=== PATIENT | female | born 1985 | race Caucasian/White ===

== ENCOUNTER 2017-02-14 14:23 | Emergency (ER) | payer SELFPAY ==
[~2017-02-14] VITALS: Ht 160 cm; Wt 59.0 kg
[~2017-02-14 14:23] MED LIST: ANXIETY MED; AZTH250C PO; CPR500T PO; DULO60CA6 PO; HYDR1TAB PO
--- NOTE | 2017-02-14 15:01 | ED Integumentary General ---
General Chief Complaint: Allergic Reaction Stated Complaint: ALLERGIC REACTION/EYES SWOLLEN Source: patient Exam Limitations: no limitations History of Present Illness Time seen by provider: 14:53 Initial Comments The patient is a 31-year-old white female who presents with complaints of swelling about the eyes. She reports that [place] She believes she apparently rubbed her eyes. Yesterday they began to swell. They also itch. Today this is more the case. She has also developed several other itchy areas, the most prominent of which is midsternal. She also states that there is redness and itching in the groin. She is suspicious that this is poison kamari. Location: face, torso, genitalia Allergies and Home Medications Allergies Coded Allergies: Penicillins (Verified Allergy, Unknown, 03/23/07) Home Medications Azithromycin 250 Mg Tablet, 1 TAB PO DAILY for 5 Days 2 tabs by mouth on day 1, then 1 tab by mouth on days 2 through 5. Prescribed by: MAXX BABCOCK on 01/06/14 1417 Constitutional: see HPI EENTM: no symptoms reported Respiratory: no symptoms reported Cardiovascular: no symptoms reported Gastrointestinal: no symptoms reported Genitourinary: no symptoms reported Musculoskeletal: no symptoms reported Skin: see HPI Psychiatric/Neurological: No Symptoms Reported Endocrine: No Symptoms Reported Past Mkaypey-Zquelo-Kgvpna Hx Patient Social History Recent Foreign Travel: No Contact w/Someone Who Travel: No Surgeries HX Surgeries: Yes (HERNIA REPAIR) Respiratory Hx Respiratory Disorders: No Cardiovascular Hx Cardiac Disorders: No Neurological Hx Neurological Disorders: No Genitourinary Hx Genitourinary Disorders: No Gastrointestinal Hx Gastrointestinal Disorders: No Musculoskeletal Hx Musculoskeletal Disorders: No Endocrine Hx Endocrine Disorders: No HEENT HX ENT Disorders: No Cancer Hx Cancer: No Psychosocial Hx Psychiatric Problems: No Integumentary HX Skin/Integumentary Disorder: No Blood Transfusions Hx Blood Disorders: No Physical Exam Vital Signs Capillary Refill : General Appearance: mild distress, moderate distress Neck: non-tender, full range of motion, supple, normal inspection Cardiovascular: normal peripheral pulses, regular rate, rhythm, no edema, no gallop, no JVD, no murmur Respiratory: chest non-tender Gastrointestinal: normal bowel sounds Comments The patient exhibits considerable swelling in the area the orbital area bilaterally. The left eye is somewhat more affected. The sclera are uninvolved. There is evidence of rash and excoriation in the mid sternal area. Scattered areas are noted on the hands and arms as well. Departure Impression Impression: Primary Impression: Rhus dermatitis Disposition: 01 HOME, SELF-CARE Condition: Stable/Unchanged Departure-Patient Inst. Decision time for Depature: 14:58 Referrals: NO,LOCAL PHYSICIAN (PCP) Primary Care Physician Add. Discharge Instructions: All discharge instructions reviewed with patient and/or family. Voiced understanding. 1.use cool compresses to reduce eye swelling. 2.take prednisone as directed 3.in future, practice avoidance which is to say wash hands with soap and water before touching in other parts. After outdoor experiences, removing clothing and throwing it in that her to close and taking a warm soapy shower will reduce the incidence of poison kamari and also of chigger bites and tics. Scripts Prednisone (Prednisone) 20 Mg Tab 40 MG PO Q a.m., #6 TAB Prov: SAM SINGH MD 02/14/17 SAM SINGH MD Feb 14, 2017 15:01
[2017-02-14] MEDS ORDERED: PRD20T PO (15:02)
[2017-02-14 15:15] VITALS: BP 133/74
[2017-02-14] MEDS ORDERED: methylPREDNISolone 125 MG (Solu-MEDROL) VIAL IM ONE (15:15)
--- OUTSIDE RECORDS SUMMARY | 2017-02-18 07:42 | XMS REPORT | Continuity of Care Document ---
Author Author [facility] Organization [facility] Address Unknown Phone Unavailable Allergies Active Description Code Type Severity Reaction Onset Reported/Identified Relationship to Patient Clinical Status Yes Penicillins [id number] Drug Allergy Unknown N/A 03/23/2007 Yes penicillin G sodium Drug Allergy 11/20/2010 Yes penicillin G sodium Drug Allergy N/A N/A 11/20/2010 Medications Problems Date Dx Coded Attending Type Code Diagnosis Diagnosed By 06/09/2008 V25.49 SURVEILLANCE OF OTHER CONTRACEPTIVE METHOD 06/09/2008 V25.49 SURVEILLANCE OF OTHER CONTRACEPTIVE METHOD 06/09/2008 V25.49 SURVEILLANCE OF OTHER CONTRACEPTIVE METHOD 06/09/2008 ARCENIO LOCKHART DO V25.49 SURVEILLANCE OF OTHER CONTRACEPTIVE METHOD 06/09/2008 ARCENIO LOCKHART DO V25.49 SURVEILLANCE OF OTHER CONTRACEPTIVE METHOD 06/09/2008 MARIAELENA WU APRN V25.49 SURVEILLANCE OF OTHER CONTRACEPTIVE METHOD 10/30/2010 V72.31 STROKE BELT SANDER OPERATOR EXAM, ROUTINE 10/30/2010 V72.42 TEST POSITIVE RESULT 10/30/2010 V74.5 STD SCREEN 10/30/2010 V72.31 STROKE BELT SANDER OPERATOR EXAM, ROUTINE 10/30/2010 V72.42 TEST POSITIVE RESULT 10/30/2010 V74.5 STD SCREEN 10/30/2010 V72.31 STROKE BELT SANDER OPERATOR EXAM, ROUTINE 10/30/2010 V72.42 TEST POSITIVE RESULT 10/30/2010 V74.5 STD SCREEN 10/30/2010 ARCENIO LOCKHART DO V72.31 STROKE BELT SANDER OPERATOR EXAM, ROUTINE 10/30/2010 ARCENIO LOCKHART DO V72.42 TEST POSITIVE RESULT 10/30/2010 ARCENIO LOCKHART DO V74.5 STD SCREEN 10/30/2010 ARCENIO LOCKHART DO V72.31 STROKE BELT SANDER OPERATOR EXAM, ROUTINE 10/30/2010 ARCENIO LOCKHART DO V72.42 TEST POSITIVE RESULT 10/30/2010 ARCENIO LOCKHART DO V74.5 STD SCREEN 10/30/2010 MARIAELENA WU APRN V72.31 STROKE BELT SANDER OPERATOR EXAM, ROUTINE 10/30/2010 MARIAELENA WU APRN V72.42 TEST POSITIVE RESULT 10/30/2010 MARIAELENA WU APRN V74.5 STD SCREEN 11/20/2010 654.20 PREVIOUS 11/20/2010 782.1 RASH 11/20/2010 V22.1 , NORMAL OTHER 11/20/2010 654.20 PREVIOUS 11/20/2010 782.1 RASH 11/20/2010 V22.1 , NORMAL OTHER 11/20/2010 654.20 PREVIOUS 11/20/2010 782.1 RASH 11/20/2010 V22.1 , NORMAL OTHER 11/20/2010 LYDIA LOCKHART DOA K 654.20 PREVIOUS 11/20/2010 RICHY HUNT ARCENIO K 782.1 RASH 11/20/2010 LOCKHART DO ARCENIO K V22.1 , NORMAL OTHER 11/20/2010 RICHY HUNT ARCENIO K 654.20 PREVIOUS 11/20/2010 RICHY HUNT ARCENIO K 782.1 RASH 11/20/2010 LOCKHART DO ARCENIO K V22.1 , NORMAL OTHER 11/20/2010 MARIAELENA WU APRN R 654.20 PREVIOUS 11/20/2010 MARIAELENA WU APRN R 782.1 RASH 11/20/2010 MARIAELENA WU APRN R V22.1 , NORMAL OTHER 12/18/2010 640.00 THREATENED 12/18/2010 640.00 THREATENED 12/18/2010 640.00 THREATENED 12/18/2010 LYDIA LOCKHART DOA K 640.00 THREATENED 12/18/2010 RICHY HUNT ARCENIO K 640.00 THREATENED 12/18/2010 MARIAELENA WU APRN R 640.00 THREATENED 12/22/2010 Ot 634.91 SPON ABORT UNCOMPL-INC 06/20/2011 727.42 GANGLION OF TENDON SHEATH 06/20/2011 V25.9 CONTRACEPTION MANAGEMENT 06/20/2011 727.42 GANGLION OF TENDON SHEATH 06/20/2011 V25.9 CONTRACEPTION MANAGEMENT 06/20/2011 727.42 GANGLION OF TENDON SHEATH 06/20/2011 V25.9 CONTRACEPTION MANAGEMENT 06/20/2011 ARCENIO LOCKHART DO 727.42 GANGLION OF TENDON SHEATH 06/20/2011 ARCENIO LOCKHART DO K V25.9 CONTRACEPTION MANAGEMENT 06/20/2011 ARCENIO LOCKHART DO K 727.42 GANGLION OF TENDON SHEATH 06/20/2011 LYDIA LOCKHART DOA K V25.9 CONTRACEPTION MANAGEMENT 06/20/2011 MARIAELENA WU APRN 727.42 GANGLION OF TENDON SHEATH 06/20/2011 MARIAELENA WU APRN R V25.9 CONTRACEPTION MANAGEMENT 07/18/2011 354.0 CARPAL TUNNEL SYNDROME 07/18/2011 354.0 CARPAL TUNNEL SYNDROME 07/18/2011 354.0 CARPAL TUNNEL SYNDROME 07/18/2011 ARCENIO LOCKHART DO K 354.0 CARPAL TUNNEL SYNDROME 07/18/2011 ARCENIO LOCKHART DO K 354.0 CARPAL TUNNEL SYNDROME 07/18/2011 MARIAELENA WU APRN 354.0 CARPAL TUNNEL SYNDROME 01/28/2012 719.41 SHOULDER JOINT PAIN 01/28/2012 V76.2 CERVICAL CANCER SCREENING (PAP SMEAR) 01/28/2012 719.41 SHOULDER JOINT PAIN 01/28/2012 V76.2 CERVICAL CANCER SCREENING (PAP SMEAR) 01/28/2012 719.41 SHOULDER JOINT PAIN 01/28/2012 V76.2 CERVICAL CANCER SCREENING (PAP SMEAR) 01/28/2012 ARCENIO LOCKHART DO 719.41 SHOULDER JOINT PAIN 01/28/2012 ARCENIO LOCKHART DO K V76.2 CERVICAL CANCER SCREENING (PAP SMEAR) 01/28/2012 ARCENIO LOCKHART DO K 719.41 SHOULDER JOINT PAIN 01/28/2012 ARCENIO LOCKHART DO K V76.2 CERVICAL CANCER SCREENING (PAP SMEAR) 01/28/2012 MARIAELENA WU APRN R 719.41 SHOULDER JOINT PAIN 01/28/2012 MARIAELENA WU APRN R V76.2 CERVICAL CANCER SCREENING (PAP SMEAR) 05/01/2012 V72.41 TEST NEGATIVE RESULT 05/01/2012 V72.41 TEST NEGATIVE RESULT 05/01/2012 V72.41 TEST NEGATIVE RESULT 05/01/2012 ARCENIO LOCKHART DO K V72.41 TEST NEGATIVE RESULT 05/01/2012 ARCENIO LOCKHART DO K V72.41 TEST NEGATIVE RESULT 05/01/2012 MARIAELENA WU APRN V72.41 TEST NEGATIVE RESULT 03/10/2013 305.1 TOBACCO ABUSE 03/10/2013 V76.10 BREAST CANCER SCREENING 03/10/2013 ARCENIO LOCKHART DO K 305.1 TOBACCO ABUSE 03/10/2013 ARCENIO LOCKHART DO K V76.10 BREAST CANCER SCREENING 03/10/2013 ARCENIO LOCKHART DO K 305.1 TOBACCO ABUSE 03/10/2013 ARCENIO LOCKHART DO K V76.10 BREAST CANCER SCREENING 03/10/2013 MARIAELENA WU APRN R 305.1 TOBACCO ABUSE 03/10/2013 MARIAELENA WU APRN R V76.10 BREAST CANCER SCREENING 01/06/2014 MAXX BABCOCK MACHINE PRESSER Ot 305.1 TOBACCO USE DISORDER 01/06/2014 MAXX BABCOCK MACHINE PRESSER Ot 465.9 ACUTE URI NOS 01/06/2014 MAXX BABCOCK APRN Ot 786.2 COUGH 09/06/2014 MARIAELENA WU APRN R 388.70 OTALGIA UNSPECIFIED 08/11/2016 Ot 647.94 08/11/2016 Ot 998.59 10/09/2016 Ot 647.94 10/09/2016 Ot 998.59 01/09/2017 Ot 647.94 01/09/2017 Ot 998.59 Procedures Code [place] [address] URINE TEST (IN-HOUSE) 08/26/2012 19159 THERAPUTIC INJ SQ/IM 08/26/2012 J1055 DEPO-PROVERA INJ 150 MG 08/26/2012 06834 THERAPUTIC INJ SQ/IM 11/30/2012 J1050 DEPO PROVERA 08254 URINE TEST (IN-HOUSE) 11/30/2012 67594 URINE TEST (IN-HOUSE) 06/01/2013 01809 THERAPUTIC INJ SQ/IM 06/01/2013 J1050 DEPO PROVERA J1050 DEPO PROVERA 03/2014 07892 TEST, URINE (IN-HOUSE) 11/16/2013 13689 THERAPUTIC INJ SQ/IM 11/16/2013 Results Encounters ACCT No. Visit Date/Time Discharge Status Pt. Type Provider Facility Loc./Unit Complaint [id number] 02/14/2017 14:25:00 2016 15:17:00 DIS Emergency FRANCISCO ALVA, SAM Delacruz [facility] ER ALLERGIC REACTION/EYES SWOLLEN [id number] 01/06/2014 13:15:00 2013 14:26:00 DIS Emergency MAXX BABCOCK APRN [facility] ER COUGH CHEST/BACK PAIN SOA [id number] 12/21/2010 21:45:00 Document Registration [id number] 03/28/2007 00:30:00 Document Registration
== END 2017-02-14 15:17 | disposition home or self-care (01) ==
LOC: EDUNIT# 14:23 → ER 14:25
DX: L23.7 Allergic contact dermatitis due to plants, except food (principal)
CPT/HCPCS: 96374

== ENCOUNTER 2018-02-13 14:45 | Emergency (ER) | payer SELFPAY ==
[~2018-02-13] VITALS: Ht 162.6 cm; Wt 59.0 kg
[~2018-02-13 14:45] MED LIST changes: +PRD20T PO
[2018-02-13] MEDS ORDERED: LIDOCAINE/EPI 1%-1:100,000 (XYLOCAINE) 20ML INJ ONE (15:00)
[2018-02-13] MEDS ORDERED: CLINDAMYCIN 600 MG/4ML (CLEOCIN) VIAL IM ONE (15:00)
--- NOTE | 2018-02-13 15:03 | ED EENT ---
History of Present Illness General Chief Complaint: Dental Problems/Pain Stated Complaint: DENTAL INFECTION Source: patient Exam Limitations: no limitations History of Present Illness Date Seen by Provider: Feb 13, 2018 Time Seen by Provider: 14:57 Initial Comments to ER with left lower dental pain and swelling for 2 days. States sheI cannot afford an antibiotic right now. Timing/Duration: abrupt Severity: moderate Location: dental Associated Symptoms: facial pain/swelling Allergies and Home Medications Allergies Coded Allergies: Penicillins (Verified Allergy, Unknown, 03/23/07) Home Medications Cephalexin 500 Mg Capsule, 500 MG PO TID Prescribed by: MAXX BABCOCK on 02/13/18 1514 Hydrocodone/Acetaminophen 1 Each Tablet, 1 EACH PO Q4H PRN for PAIN-MODERATE do not fill unless Keflex and Flagyl are also filled. Prescribed by: MAXX BABCOCK on 02/13/18 1514 Metronidazole 500 Mg Tablet, 500 MG PO TID Prescribed by: MAXX BABCOCK on 02/13/18 1514 Prednisone 20 Mg Tab, 40 MG PO Q a.m. Prescribed by: SAM SINGH on 02/14/17 1502 Patient Home Medication List Home Medication List Reviewed: Yes Review of Systems Constitutional: see HPI Eyes: No Symptoms Reported Ears: No Symptoms Reported Nose: no symptoms reported Mouth: see HPI, pain Throat: no symptoms reported Respiratory: no symptoms reported Cardiovascular: no symptoms reported Musculoskeletal: no symptoms reported Past Djrfpsj-Klogqt-Qylpgs Hx Patient Social History Type Used: Cigarettes Recent Foreign Travel: No Contact w/Someone Who Travel: No Past Medical History Surgeries: Yes (HERNIA REPAIR) Respiratory: No Cardiac: No Neurological: No Gastrointestinal: No Musculoskeletal: No Endocrine: No Cancer: No Psychosocial: No Integumentary: No Blood Disorders: No Physical Exam Vital Signs Vital Signs - First Documented 02/13/18 14:52 Temp 98.4 Pulse 122 Resp 15 B/P (MAP) 124/84 (97) Pulse Ox 99 O2 Delivery Room Air O2 Flow Rate 0 Height, Weight, BMI Height: 5', 3" Weight: 130lbs oz, 58.054188hu Method:Stated ,31.88BMI General Appearance: WD/WN, no apparent distress Eyes: bilateral eye normal inspection, bilateral eye PERRL Ears: bilateral ear auricle normal, bilateral ear canal normal Mouth/Throat: normal mouth inspection, pharynx normal (mucosa left mandible next to tooth #22) Procedures/Interventions I&D : Blade Size: 11 Progress Inferior alveolar nerve block done with anesthesia of the area of abscess. Over the area of maximum fluctuance, 11 blade scalpel was used to open an area about 0.5-1 cm in length. A small amount of purulent material was expressed. Culture was collected and sent to lab.hemostasis achieved with direct pressure via 2 x 2 gauze pads Progress/Results/Core Measures Results/Orders My Orders Orders - MAXX BABCOCK APRN Clindamycin Injection (Cleocin Injection (02/13/18 15:00) Wound Culture (02/13/18 14:55) Lidocaine/Epi 1% 1:100,000 (Xylocaine /E (02/13/18 15:00) Clindamycin Injection (Cleocin Injection (02/13/18 15:15) Lidocaine/Epi 2% 1:100,000 (Xylocaine/Ep (02/13/18 15:15) Clindamycin Injection (Cleocin Injection (02/13/18 15:16) Medications Given in ED Current Medications Medications Dose Ordered Sig/Alvarez Route Start Time Stop Time Status Last Admin Dose Admin Clindamycin Phosphate 300 mg STK-MED ONCE .ROUTE 02/13/18 15:16 02/13/18 15:18 DC 02/13/18 15:24 600 MG Vital Signs/I&O 02/13/18 14:52 Temp 98.4 Pulse 122 Resp 15 B/P (MAP) 124/84 (97) Pulse Ox 99 O2 Delivery Room Air O2 Flow Rate 0 Departure Communication (Admissions) she is allergic to penicillins.she cannot afford clindamycin. I'll use Keflex and Flagyl. Impression Primary Impression: Dental abscess Disposition: HOME, SELF-CARE Condition: Stable Departure-Patient Inst. Decision time for Depature: 15:11 Referrals: NO,LOCAL PHYSICIAN (PCP/Family) Primary Care Physician Patient Instructions: Tooth Abscess (DC) Add. Discharge Instructions: 1. Return to ER for any worsening symptoms 2. Medication as directed 3.antibiotics are far more helpful in resolving this than the pain medication so if you only fill one type of medication, choose the antibiotic. All discharge instructions reviewed with patient and/or family. Voiced understanding. Scripts Hydrocodone/Acetaminophen ([place] 5-325 Tablet) 1 Each Tablet 1 EACH PO Q4H PRN for PAIN-MODERATE, #14 TAB do not fill unless Keflex and Flagyl are also filled. Prov: MAXX BABCOCK APRN 02/13/18 Metronidazole (Flagyl) 500 Mg Tablet 500 MG PO TID, #15 TAB Prov: MAXX BABCOCK APRN 02/13/18 Cephalexin (Keflex) 500 Mg Capsule 500 MG PO TID, #21 CAP Prov: MAXX BABCOCK APRN 02/13/18 MAXX BABCOCK APRN Feb 13, 2018 15:03
[2018-02-13] MEDS ORDERED: METR500T PO (15:14)
[2018-02-13] MEDS ORDERED: HYDR-757 PO (15:14)
[2018-02-13] MEDS ORDERED: CEPH-507 PO (15:14)
[2018-02-13] MEDS ORDERED: LIDOCAINE/EPI 2% 1:100,00 (XYLOCAINE) 20 ML VIAL INJ ONE (15:15)
[2018-02-13] MEDS ORDERED: CLINDAMYCIN 300 MG/2ML (CLEOCIN) VIAL IM SCH (15:15)
[2018-02-13] MEDS ORDERED: CLINDAMYCIN 300 MG/2ML (CLEOCIN) VIAL ONE (15:16)
[2018-02-13 15:56] VITALS: BP 124/84
== END 2018-02-13 15:56 | disposition home or self-care (01) ==
LOC: EDUNIT# 14:45 → ER 14:48
DX: K04.7 Periapical abscess without sinus (principal); Z88.0 Allergy status to penicillin; Z79.52 Long term (current) use of systemic steroids; Z87.19 Personal history of other diseases of the digestive system
CPT/HCPCS: 41800; 87070; 87077; 87205; 96372

== ENCOUNTER 2018-02-26 09:09 | Emergency (ER) | payer SELFPAY ==
[~2018-02-26] VITALS: Ht 160 cm; Wt 59.0 kg
[~2018-02-26 09:09] MED LIST changes: +CEPH-507 PO; +HYDR-757 PO; +METR500T PO
--- OUTSIDE RECORDS SUMMARY | 2018-02-26 09:16 | XMS REPORT | Continuity of Care Document ---
Author Author [facility] Address Unknown Phone Unavailable Allergies Active Description Code Type Severity Reaction Onset Reported/Identified Relationship to Patient Clinical Status Yes Penicillins [id number] Drug Allergy Unknown N/A 03/23/2007 Yes penicillin G sodium Drug Allergy 11/20/2010 Yes penicillin G sodium Drug Allergy N/A N/A 11/20/2010 Medications There is no data. Problems Date Dx Coded Attending Type Code Diagnosis Diagnosed By 06/09/2008 V25.49 SURVEILLANCE OF OTHER CONTRACEPTIVE METHOD 06/09/2008 V25.49 SURVEILLANCE OF OTHER CONTRACEPTIVE METHOD 06/09/2008 V25.49 SURVEILLANCE OF OTHER CONTRACEPTIVE METHOD 06/09/2008 ARCENIO LOCKHART DO V25.49 SURVEILLANCE OF OTHER CONTRACEPTIVE METHOD 06/09/2008 ARCENIO LOCKHART DO V25.49 SURVEILLANCE OF OTHER CONTRACEPTIVE METHOD 06/09/2008 MARIAELENA WU APRN V25.49 SURVEILLANCE OF OTHER CONTRACEPTIVE METHOD 10/30/2010 V72.31 MACHINE SPRAYER EXAM, ROUTINE 10/30/2010 V72.42 TEST POSITIVE RESULT 10/30/2010 V74.5 STD SCREEN 10/30/2010 V72.31 MACHINE SPRAYER EXAM, ROUTINE 10/30/2010 V72.42 TEST POSITIVE RESULT 10/30/2010 V74.5 STD SCREEN 10/30/2010 V72.31 MACHINE SPRAYER EXAM, ROUTINE 10/30/2010 V72.42 TEST POSITIVE RESULT 10/30/2010 V74.5 STD SCREEN 10/30/2010 LOCKHART ARCENIO HUNT V72.31 MACHINE SPRAYER EXAM, ROUTINE 10/30/2010 ARCENIO LOCKHART DO V72.42 TEST POSITIVE RESULT 10/30/2010 ARCENIO LOCKHART DO V74.5 STD SCREEN 10/30/2010 ARCENIO LOCKHART DO V72.31 MACHINE SPRAYER EXAM, ROUTINE 10/30/2010 ARCENIO LOCKHART DO V72.42 TEST POSITIVE RESULT 10/30/2010 ARCENIO LOCKHART DO V74.5 STD SCREEN 10/30/2010 MARIAELENA WU APRN V72.31 MACHINE SPRAYER EXAM, ROUTINE 10/30/2010 MARIAELENA WU APRN V72.42 TEST POSITIVE RESULT 10/30/2010 MARIAELENA WU APRN V74.5 STD SCREEN 11/20/2010 654.20 PREVIOUS C- SECTION 11/20/2010 782.1 RASH 11/20/2010 V22.1 , NORMAL OTHER 11/20/2010 654.20 PREVIOUS C- SECTION 11/20/2010 782.1 RASH 11/20/2010 V22.1 , NORMAL OTHER 11/20/2010 654.20 PREVIOUS C- SECTION 11/20/2010 782.1 RASH 11/20/2010 V22.1 , NORMAL OTHER 11/20/2010 RICHY DO ARCENIO K 654.20 PREVIOUS 11/20/2010 LOCKHART DO, ARCENIO K 782.1 RASH 11/20/2010 LOCKHART DO, ARCENIO K V22.1 , NORMAL OTHER 11/20/2010 RICHY HUNT ARCENIO K 654.20 PREVIOUS 11/20/2010 LOCKHART DO, ARCENIO K 782.1 RASH 11/20/2010 LOCKHART DO, ARCENIO K V22.1 , NORMAL OTHER 11/20/2010 MARIAELENA WU APRN R 654.20 PREVIOUS 11/20/2010 MARIAELENA WU APRN R 782.1 RASH 11/20/2010 MARIAELENA WU APRN V22.1 , NORMAL OTHER 12/18/2010 640.00 THREATENED 12/18/2010 640.00 THREATENED 12/18/2010 640.00 THREATENED 12/18/2010 RICHY DO ARCENIO K 640.00 THREATENED 12/18/2010 LOCKHART DO ARCENIO K 640.00 THREATENED 12/18/2010 MARIAELENA WU [...] K 727.42 GANGLION OF TENDON SHEATH 06/20/2011 ARCENIO LOCKHART DO K V25.9 CONTRACEPTION MANAGEMENT 06/20/2011 MARIAELENA WU APRN 727.42 GANGLION OF TENDON SHEATH 06/20/2011 MARIAELENA WU APRN V25.9 CONTRACEPTION MANAGEMENT 07/18/2011 354.0 CARPAL TUNNEL [...] SHOULDER JOINT PAIN 01/28/2012 ARCENIO LOCKHART DO V76.2 CERVICAL CANCER SCREENING (PAP SMEAR) 01/28/2012 ARCENIO LOCKHART DO 719.41 SHOULDER JOINT PAIN 01/28/2012 ARCENIO LOCKHART DO V76.2 CERVICAL CANCER SCREENING (PAP SMEAR) 01/28/2012 MARIAELENA WU APRN 719.41 SHOULDER JOINT PAIN 01/28/2012 MARIAELENA WU APRN R V76.2 CERVICAL CANCER SCREENING (PAP SMEAR) 05/01/2012 V72.41 TEST NEGATIVE RESULT 05/01/2012 V72.41 TEST NEGATIVE RESULT 05/01/2012 V72.41 TEST NEGATIVE RESULT 05/01/2012 ARCENIO LOCKHART DO V72.41 TEST NEGATIVE RESULT 05/01/2012 ARCENIO LOCKHART DO V72.41 TEST NEGATIVE RESULT 05/01/2012 MARIAELENA WU APRN V72.41 TEST NEGATIVE RESULT 03/10/2013 305.1 TOBACCO ABUSE 03/10/2013 V76.10 BREAST CANCER SCREENING 03/10/2013 ARCENIO LOCKHART DO K 305.1 TOBACCO ABUSE 03/10/2013 ARCENIO LOCKHART DO K V76.10 BREAST CANCER SCREENING 03/10/2013 ARCENIO LOCKHART DO K 305.1 TOBACCO ABUSE 03/10/2013 LYDIA LOCKHART DOA K V76.10 BREAST CANCER SCREENING 03/10/2013 JAZMIN PENG MARIAELENA R 305.1 TOBACCO ABUSE 03/10/2013 JAZMIN PENG MARIAELENA R V76.10 BREAST CANCER SCREENING 01/06/2014 MAXX BABCOCK APRN Ot 305.1 TOBACCO USE DISORDER 01/06/2014 MAXX BABCOCK APRN Ot 465.9 ACUTE URI NOS 01/06/2014 MAXX BABCOCK APRN Ot 786.2 COUGH 09/06/2014 MAX WU APRNINA R 388.70 OTALGIA UNSPECIFIED 08/11/2016 Ot 647.94 08/11/2016 Ot 998.59 10/09/2016 Ot 647.94 10/09/2016 Ot 998.59 01/09/2017 Ot 647.94 01/09/2017 Ot 998.59 02/14/2017 SAM SINGH MD Ot H57.8 OTHER SPECIFIED DISORDERS OF EYE AND ADN 02/14/2017 SAM SINGH MD Ot L23.7 ALLERGIC CONTACT DERMATITIS DUE TO PLANT 02/17/2017 SAM SINGH MD Ot H57.8 OTHER SPECIFIED DISORDERS OF EYE AND ADN 02/17/2017 SAM SINGH MD Ot L23.7 ALLERGIC CONTACT DERMATITIS DUE TO PLANT 02/16/2018 MAXX BABCOCK APRN Ot K04.7 PERIAPICAL ABSCESS WITHOUT SINUS 02/16/2018 MAXX BABCOCK APRN Ot K08.89 OTHER SPECIFIED DISORDERS OF TEETH AND S 02/16/2018 MAXX BABCOCK APRN Ot Z79.52 BLOW MOLD MACHINE OPERATOR (CURRENT) USE OF SYSTEMIC STER 02/16/2018 MAXX BABCOCK APRN Ot Z87.19 PERSONAL HISTORY OF OTHER DISEASES OF TH 02/16/2018 MAXX BABCOCK APRN Ot Z88.0 ALLERGY STATUS TO PENICILLIN Procedures Code Description [place] [address] URINE TEST (IN- HOUSE) 08/26/2012 30480 THERAPUTIC INJ SQ/IM 08/26/2012 J1055 DEPO-PROVERA INJ 150 MG 08/26/2012 55252 THERAPUTIC INJ SQ/IM 11/30/2012 J1050 DEPO PROVERA 11/30/2012 84429 URINE TEST (IN- HOUSE) 11/30/2012 10102 URINE TEST (IN- HOUSE) 06/01/2013 39114 THERAPUTIC INJ SQ/IM 06/01/2013 J1050 DEPO PROVERA 06/01/2013 J1050 DEPO PROVERA 11/16/2013 58046 TEST, URINE (IN- HOUSE) 11/16/2013 97353 THERAPUTIC INJ SQ/IM 11/16/2013 Results Test Result Range Gram stain microscopy - 02/13/18 15:34 GRAM STAIN RESULT FEW WBC'S, NO BACTERIA OBSERVED NRG Bacteria identification in wound by culture - 02/13/18 15:34 Bacteria identification in wound by culture [id number] NRG FREE TEXT EXTERNAL BETA LACTAMASE NEGATIVE NRG QUANTITY OF GROWTH Scant Growth NRG Encounters ACCT No. Visit Date/Time Discharge Status Pt. Type Provider Facility Loc./Unit Complaint [id number] 09/06/2014 17:58:00 09/06/2014 23:59:59 CLS Outpatient MARIAELENA WU APRN [id number] 11/16/2013 15:12:00 11/16/2013 23:59:59 CLS Outpatient ARCENIO LOCKHART DO [id number] 06/01/2013 13:34:00 06/01/2013 23:59:59 CLS Outpatient ARCENIO LOCKHART DO [id number] 08/26/2012 14:01:00 08/26/2012 23:59:59 CLS Outpatient [id number] 03/10/2013 09:21:00 Document Registration [id number] 11/30/2012 18:13:00 Document Registration [id number] 02/13/2018 14:48:00 02/13/2018 15:56:00 DIS Outpatient MAXX BABCOCK APRN [facility] ER DENTAL INFECTION [id number] 02/14/2017 14:25:00 02/14/2017 15:17:00 DIS Emergency SAM SINGH MD [facility] ER ALLERGIC REACTION/EYES SWOLLEN [id number] 01/06/2014 13:15:00 01/06/2014 14:26:00 DIS Emergency MXAX BABCOCK APRN [facility] ER COUGH CHEST/BACK PAIN SOA [id number] 12/21/2010 21:45:00 Document Registration [id number] 03/28/2007 00:30:00 Document Registration
--- NOTE | 2018-02-26 10:42 | ED Integumentary General ---
General Chief Complaint: Skin/Wound Problems Stated Complaint: POISON NOVA Nursing Triage Note: PATIENT STATES THAT SHE BELIEVES SHE HAS POISON NOVA. SHE IS BROKEN OUT IN A RED RASH ALL OVER HER BODY THAT ITCHES. HER EYES ARE SWOLLEN. Source: patient Exam Limitations: no limitations History of Present Illness Date Seen by Provider: Feb 26, 2018 Time Seen by Provider: 10:35 Initial Comments This 32-year-old woman presents to emergency room with intensely pruritic erythematous and swelling rash on her face and arms. 2 days ago [place] and believe she may been exposed to poison nova. She has tried a topical poison nova medication which was not particularly helpful. She denies any airway compromise. She is requesting an injection of steroids to treat the rash. Allergies and Home Medications Allergies Coded Allergies: Penicillins (Verified Allergy, Unknown, 03/23/07) Home Medications Cephalexin 500 Mg Capsule, 500 MG PO TID Prescribed by: MAXX BABCOCK on 02/13/18 1514 Hydrocodone/Acetaminophen 1 Each Tablet, 1 EACH PO Q4H PRN for PAIN-MODERATE do not fill unless Keflex and Flagyl are also filled. Prescribed by: MAXX BABCOCK on 02/13/18 1514 Metronidazole 500 Mg Tablet, 500 MG PO TID Prescribed by: MAXX BABCOCK on 02/13/18 1514 Prednisone 20 Mg Tab, 40 MG PO Q a.m. Prescribed by: SAM SINGH on 02/14/17 1502 Prednisone 10 Mg Tab.ds.pk, 10 MG PO UD Take 3 tabs daily for 3 days, then 2 Tabs daily for 3 days, then 1 tab daily for 3 days. Take early in the day with food or milk Prescribed by: MOLLY YAP on 02/26/18 1044 Patient Home Medication List Home Medication List Reviewed: Yes Constitutional: no symptoms reported EENTM: no symptoms reported Respiratory: no symptoms reported Cardiovascular: no symptoms reported Gastrointestinal: no symptoms reported Genitourinary: no symptoms reported Musculoskeletal: no symptoms reported Skin: see HPI Psychiatric/Neurological: No Symptoms Reported Endocrine: No Symptoms Reported Past Oxapowu-Ibcnci-Oqcdga Hx Patient Social History Alcohol Use: Denies Use Recreational Drug Use: No Smoking Status: Current Everyday Smoker Type Used: Cigarettes 2nd Hand Smoke Exposure: Yes Recent Foreign Travel: No Contact w/Someone Who Travel: No Recent Infectious Disease Expo: No Physical Abuse: No Sexual Abuse: No Past Medical History Surgeries: Yes (HERNIA REPAIR) Respiratory: No Cardiac: No Neurological: No Reproductive Disorders: No Genitourinary: No Gastrointestinal: No Musculoskeletal: No Endocrine: No Cancer: No Psychosocial: No Nursing Suicide Risk Score: 0 Integumentary: No Blood Disorders: No Physical Exam Vital Signs Vital Signs - First Documented 02/26/18 09:13 Temp 97.9 Pulse 109 Resp 18 B/P (MAP) 118/70 (86) Pulse Ox 97 Capillary Refill : Less Than 3 Seconds General Appearance: WD/WN, mild distress (from itching) HEENT: PERRL/EOMI, pharynx normal, other (edema and erythema of the face) Neck: normal inspection Cardiovascular: regular rate, rhythm, no murmur Respiratory: lungs clear, normal breath sounds, no respiratory distress, no accessory muscle use Extremities: no pedal edema, other (rash on the arms) Neurologic/Psychiatric: ophthalmic medical technologist II-XII nml as tested, no motor/sensory deficits, alert, normal mood/affect, oriented x 3, EOM palsy, depressed affect Skin: warm/dry, rash (erythematous and swollen rash on the face, neck, and upper extremities, pruritic) Progress/Results/Core Measures Results/Orders My Orders Orders - MOLLY PANDYA MD Methylprednisolone Sod Succ (Solu-Medrol (02/26/18 10:45) Medications Given in ED Current Medications Medications Dose Ordered Sig/Alvarez Route Start Time Stop Time Status Last Admin Dose Admin Methylprednisolone Sodium Succinate 125 mg ONCE ONCE IM 02/26/18 10:45 02/26/18 10:46 DC 02/26/18 10:44 125 MG Vital Signs/I&O 02/26/18 02/26/18 09:13 10:49 Temp 97.9 97.9 Pulse 109 109 Resp 18 18 B/P (MAP) 118/70 (86) 118/70 (86) Pulse Ox 97 97 Blood Pressure Mean: 86 Progress Progress Note : Progress Note Patient received an injection of Solu-Medrol 125 mg and a prescription for prednisone to start tomorrow if not improved. Departure Impression Primary Impression: Contact dermatitis due to poison nova Disposition: 01 HOME, SELF-CARE Condition: Improved Departure-Patient Inst. Decision time for Depature: 10:37 Referrals: NO,LOCAL PHYSICIAN (PCP/Family) Primary Care Physician Patient Instructions: Poison Nova Add. Discharge Instructions: For itching you may take Benadryl (or generic diphenhydramine) up to 50 mg every 6 hours as needed. If you would like a nondrowsy option you may use Claritin (loratadine) or Zyrtec (cetirizine). If you are not having satisfactory relief by tomorrow, you may start the prednisone pills. Topical anti-itch medication such as topical diphenhydramine may also be used. Return to care if you have worsening symptoms. Return to the ER or call 911 if you develop swelling of the lips, tongue, or throat or develop shortness of breath. All discharge instructions reviewed with patient and/or family. Voiced understanding. Scripts Prednisone (Prednisone) 10 Mg Tab.ds.pk 10 MG PO UD, #18 PKG Take 3 tabs daily for 3 days, then 2 Tabs daily for 3 days, then 1 tab daily for 3 days. Take early in the day with food or milk Prov: MOLLY PANDYA MD 02/26/18 MOLLY PANDYA MD Feb 26, 2018 10:42
[2018-02-26] MEDS ORDERED: PRED10TA22 PO (10:44)
[2018-02-26] MEDS ORDERED: methylPREDNISolone 125 MG (Solu-MEDROL) VIAL IM ONE (10:45)
[2018-02-26 10:49] VITALS: BP 118/70
== END 2018-02-26 10:55 | disposition home or self-care (01) ==
LOC: EDUNIT# 09:09 → ER 09:11
DX: L25.5 Unspecified contact dermatitis due to plants, except food (principal); F17.210 Nicotine dependence, cigarettes, uncomplicated; Z88.0 Allergy status to penicillin; Z79.52 Long term (current) use of systemic steroids
CPT/HCPCS: 96372; 99284

== ENCOUNTER 2020-02-15 13:02 | Emergency (ER) | payer SELFPAY ==
[~2020-02-15] VITALS: Ht 160 cm; Wt 63.5 kg
[2020-02-15 13:02] VITALS: BP 116/69
[~2020-02-15 13:02] MED LIST changes: +HYDR-4226 PO; -HYDR-757 PO; +PRED10TA22 PO
--- NOTE | 2020-02-15 13:13 | ED General ---
General Chief Complaint: General Problems/Pain Stated Complaint: COVID SYMPTOMS Source of Information: Patient Exam Limitations: No Limitations History of Present Illness Date Seen by Provider: Feb 15, 2020 Time Seen by Provider: 13:10 Initial Comments To ER with reports of needing to be tested for her employer's request. She works in [place]. She had a family member test positive for COVID recently but she has not seen or been exposed to that family member for 1 month, certainly over 14 days. She herself is symptom-free. She does not warrant testing for this reason. Timing/Duration: 1-2 Days Severity: Moderate Associated Systoms: Denies Symptoms Allergies and Home Medications Allergies Coded Allergies: Penicillins (Verified Allergy, Unknown, 03/23/07) Home Medications Cephalexin 500 Mg Capsule, 500 MG PO TID Prescribed by: MAXX BABCOCK on 02/13/18 1514 Hydrocodone/Acetaminophen 1 Each Tablet, 1 EACH PO Q4H PRN for PAIN-MODERATE do not fill unless Keflex and Flagyl are also filled. Prescribed by: MAXX BABCOCK on 02/13/18 1514 Metronidazole 500 Mg Tablet, 500 MG PO TID Prescribed by: MAXX BABCOCK on 02/13/18 1514 Prednisone 20 Mg Tab, 40 MG PO Q a.m. Prescribed by: SAM SINGH on 02/14/17 1502 Prednisone 10 Mg Tab.ds.pk, 10 MG PO UD Take 3 tabs daily for 3 days, then 2 Tabs daily for 3 days, then 1 tab daily for 3 days. Take early in the day with food or milk Prescribed by: MOLLY YAP on 02/26/18 1044 Patient Home Medication List Home Medication List Reviewed: Yes Review of Systems Review of Systems Constitutional: see HPI EENTM: see HPI Respiratory: no symptoms reported Cardiovascular: no symptoms reported Genitourinary: no symptoms reported Musculoskeletal: no symptoms reported Skin: no symptoms reported Psychiatric/Neurological: No Symptoms Reported Hematologic/Lymphatic: No Symptoms Reported Immunological/Allergic: no symptoms reported Past Keqswwb-Ehxhkt-Lmsrqq Hx Patient Social History Type Used: Cigarettes 2nd Hand Smoke Exposure: Yes Past Medical History Surgeries: Yes (HERNIA REPAIR) Respiratory: No Cardiac: No Neurological: No Reproductive Disorders: No Genitourinary: No Gastrointestinal: No Musculoskeletal: No Endocrine: No Cancer: No Psychosocial: No Integumentary: No Blood Disorders: No Physical Exam Vital Signs Capillary Refill : Height, Weight, BMI Height: 5'3.00" Weight: 130lbs. 0oz. 58.934598gz; 31.88 BMI Method:Stated General Appearance: No Apparent Distress, WD/WN, Other (seen via face time, reports no symptoms and is in no distress alert and oriented speaks in full sentences) Eyes: Bilateral Eye Normal Inspection, Bilateral Eye PERRL, Bilateral Eye EOMI Respiratory: No Accessory Muscle Use, No Respiratory Distress Extremity: Normal Capillary Refill, Normal Inspection Neurologic/Psychiatric: Alert, Oriented x3 Skin: Normal Color, Warm/Dry Progress/Results/Core Measures Suspected Sepsis SIRS Temperature: Pulse: Respiratory Rate: Blood Pressure / Mean: Results/Orders Vital Signs/I&O Capillary Refill : Departure Impression Primary Impression: General medical exam Disposition: HOME, SELF-CARE Condition: Stable Departure-Patient Inst. Decision time for Depature: 13:12 Referrals: NO,LOCAL PHYSICIAN (PCP/Family) Primary Care Physician Patient Instructions: NO INSTRUCTIONS GIVEN Add. Discharge Instructions: 1. I was unable to contact your boss Suki. However because it has been over 14 days since you were exposed to the family member and you are still symptom free, then you are cleared to return to work without restrictions and you do not need to be tested. You may return to work today All discharge instructions reviewed with patient and/or family. Voiced understanding. MAXX BABCOCK APRN Feb 15, 2020 13:13
--- OUTSIDE RECORDS SUMMARY | 2020-02-15 16:56 | XMS REPORT ---
Author Author Olga Saini Doctor Organization [facility] Address Unknown Phone Unavailable Care Team Providers Care Web Portal Developer Name Role Phone Migration, Doctor Unavailable Unavailable PROBLEMS Type Condition ICD9-CM Code [id number] Code Onset Dates Condition S tatus SNOMED Code Problem Seasonal allergic rhinitis due to pollen J30.1 Active 21301156 ALLERGIES No Information ENCOUNTERS Encounter Location Date Diagnosis [facility] [address] [facility] [id number] [address] [place] [id number] Sep, Seasonal allergic rhinitis d ue to pollen J30.1 [facility] [address] [facility] [id number] [address] [place] [id number] Jun, Cellulitis, unspecified cell ulitis site L03.90 ; Cough R05 ; Acute midline low back pain without sciatica M54.5 and Bilateral lower extremity edema R60.0 [facility] [address] [id number] [address] [place] [id number] Nov, [facility] [address] [id number] [address] [place] [phone] Nov, [facility] [address] [id number] [address] [place] [phone] Oct, [facility] [address] [id number] [address] [place] [id number] Oct, [facility] [address] [id number] [address] [place] [id number] Oct, [facility] [address] [id number] [address] [place] [phone] Oct, [facility] [address] [facility] [id number] [address] [place] [phone] Sep, [facility] [address] [id number] [address] [place] [address], [place] [address] Sep, 2014 [facility] [address] [id number] [address] [place] [address], [place] [address] Sep, 2014 [facility] [address] [id number] [address] [place] [address], [place] [address] Sep, 2014 [facility] [address] [id number] [address] [place] [address], [place] [address] Sep, 2014 [facility] [address] [id number] [address] [place] [address], [place] [address] Sep, 2014 [facility] [address] [id number] [address] [place] [address], [place] [address] Sep, 2014 [facility] [address] [id number] [address] [place] [address], [place] [address] Sep, 2014 [facility] [address] [id number] [address] [place] [address], [place] [address] Sep, [facility] [address] [id number] [address] [place] [address], [place] [address] Aug, [facility] [address] [id number] [address] [place] [address], [place] [address] Aug, [facility] [address] [id number] [address] [place] [address], [place] [address] Apr, [facility] [address] [id number] [address] [place] [address], [place] [address] Apr, [facility] [address] [id number] [address] [place] [address], [place] [address] Feb, [facility] [address] [id number] [address] [place] [address], [place] [address] Feb, [facility] [address] [id number] [address] [place] [address], [place] [address] Nov, [facility] [address] [id number] [address] [place] [address], [place] [address] Nov, [facility] [address] [id number] [address] [place] [address], [place] [address] Oct, [facility] [address] [id number] [address] [place] [address], [place] [address] Oct, [facility] [address] [id number] [address] [place] [address], [place] [address] May, [facility] [address] [id number] [address] [place] [address], [place] [address] May, [facility] [address] [id number] [address] [place] [address], [place] [address] Mar, [facility] [address] [id number] [address] [place] [address], [place] [address] Mar, [facility] [address] [id number] [address] [place] [address], [place] [address] Mar, [facility] [address] [id number] [address] [place] [address], [place] [address] Feb, [facility] [address] [id number] [address] [place] [address], [place] [address] Feb, [facility] [address] [id number] [address] [place] [address], [place] [address] Nov, [facility] [address] [id number] [address] [place] [address], [place] [address] Aug, [facility] [address] [id number] [address] [place] [address], [place] [address] Apr, [facility] [address] [id number] [address] [place] [address], [place] [address] Jan, [facility] [address] [id number] [address] [place] [address], [place] [address] Jan, [facility] [address] [id number] [address] [place] [address], [place] [address] Jan, [facility] [address] [id number] [address] [place] [id number] Oct, [facility] [address] [id number] [address] [place] [phone] Jul, [facility] [address] [id number] [address] [place] [address] Jul, [facility] [address] [id number] [address] [place] [address] Jul, [facility] [address] [id number] [address] [place] [phone] Jul, [facility] [address] [id number] [address] [place] [phone] Jul, [facility] [address] [id number] [address] [place] [phone] Jun, [facility] [address] [id number] [address] [place] [phone] Jun, [facility] [address] [id number] [address] [place] [phone] December, [facility] [address] [id number] [address] [place] [phone] Nov, [facility] [address] [id number] [address] [place] [phone] May, IMMUNIZATIONS No Known Immunizations SOCIAL HISTORY Never Assessed REASON FOR VISIT PLAN OF CARE VITAL SIGNS MEDICATIONS Unknown Medications RESULTS No Results PROCEDURES Procedure Date Ordered Result Body Site THER/PROPH/DIAG INJ, SC/IM Jun 01, 2013 Medroxyprogesterone inj Jun 01, 2013 URINE TEST Jun 01, 2013 INSTRUCTIONS MEDICATIONS ADMINISTERED No Known Medications
--- OUTSIDE RECORDS SUMMARY | 2020-02-15 16:56 | XMS REPORT ---
Author Author Olga Sanabria Organization [facility] Address [address] [place] [address] Care Team Providers Care Sheet Metal Former Name Role Phone ITALIA Sanabria Unavailable PROBLEMS Type Condition ICD9-CM Code [id number] Code Onset Dates Condition S tatus SNOMED Code Problem Seasonal allergic rhinitis due to pollen J30.1 Active [id number] ALLERGIES No Information ENCOUNTERS Encounter Location Date Diagnosis [facility] [address] [facility] [id number] [address] [place] [address] Sep, Seasonal allergic rhinitis d ue to pollen J30.1 [facility] [address] [facility] [id number] [address] [place] [address] Jun, Cellulitis, unspecified cell ulitis site L03.90 ; Cough R05 ; Acute midline low back pain without sciatica M54.5 and Bilateral lower extremity edema R60.0 [facility] [address] [facility] [id number] [address] [place] [address] Nov, [facility] [address] [facility] [id number] [address] [place] [address] Nov, [facility] [address] [facility] [id number] [address] [place] [address] Oct, [facility] [address] [facility] [id number] [address] [place] [address] Oct, [facility] [address] [facility] [id number] [address] [place] [address] Oct, [facility] [address] [facility] [id number] [address] [place] [address] Oct, [facility] [address] [id number] [address] [place] [address], [place] [address] Sep, 2014 [facility] [address] [id number] [address] [place] [address], [place] [address] Sep, 2014 [facility] [address] [id number] [address] [place] [address], [place] [address] Sep, 2014 [facility] [address] [id number] [address] [place] [address], [place] [address] Sep, 2014 [facility] [address] [id number] [address] [place] [address], [place] [address] Sep, 2014 [facility] [address] [id number] [address] [place] [address], [place] [address] Sep, 2014 [facility] [address] [id number] [address] [place] [address], [place] [address] Sep, 2014 [facility] [address] [id number] [address] [place] [address], [place] [address] Sep, 2014 [facility] [address] [id number] [address] [place] [address], [place] [address] Sep, [facility] [address] [id number] [address] [place] [address], [place] [address] Aug, [facility] [address] [id number] [address] [place] [address], [place] [address] Aug, [facility] [address] [id number] [address] [place] [address], [place] [address] Apr, [facility] [address] [id number] [address] [place] [address], [place] [address] Apr, [facility] [address] [id number] [address] [place] [address], [place] [address] Feb, [facility] [address] [id number] [address] [place] [address], [place] [address] Feb, [facility] [address] [id number] [address] [place] [address], [place] [address] Nov, [facility] [address] [id number] [address] [place] [address], [place] [address] Nov, [facility] [address] [id number] [address] [place] [address], [place] [address] Oct, [facility] [address] [id number] [address] [place] [address], [place] [address] Oct, [facility] [address] [id number] [address] [place] [address], [place] [address] May, [facility] [address] [id number] [address] [place] [address], [place] [address] May, [facility] [address] [id number] [address] [place] [address], [place] [address] Mar, [facility] [address] [id number] [address] [place] [address], [place] [address] Mar, [facility] [address] [id number] [address] [place] [address], [place] [address] Mar, [facility] [address] [id number] [address] [place] [address], [place] [address] Feb, [facility] [address] [id number] [address] [place] [address], [place] [address] Feb, [facility] [address] [id number] [address] [place] [address], [place] [address] Nov, [facility] [address] [id number] [address] [place] [address], [place] [address] Aug, [facility] [address] [id number] [address] [place] [address], [place] [address] Apr, [facility] [address] [id number] [address] [place] [address], [place] [address] Jan, [facility] [address] [id number] [address] [place] [address], [place] [address] Jan, [facility] [address] [id number] [address] [place] [address] Jan, [facility] [address] [id number] [address] [place] [address] Oct, [facility] [address] [id number] [address] [place] [address] Jul, [facility] [address] [id number] [address] [place] [address] Jul, [facility] [address] [id number] [address] [place] [address] Jul, [facility] [address] [id number] [address] [place] [address] Jul, [facility] [address] [id number] [address] [place] [address] Jul, [facility] [address] [id number] [address] [place] [address] Jun, [facility] [address] [id number] [address] [place] [address] Jun, [facility] [address] [id number] [address] [place] [address] December, [facility] [address] [id number] [address] [place] [id number] Nov, [facility] [address] [id number] [address] [place] [address] May, IMMUNIZATIONS No Known Immunizations SOCIAL HISTORY Never Assessed REASON FOR VISIT PLAN OF CARE VITAL SIGNS MEDICATIONS Unknown Medications RESULTS No Results PROCEDURES No Known procedures INSTRUCTIONS MEDICATIONS ADMINISTERED No Known Medications
--- OUTSIDE RECORDS SUMMARY | 2020-02-15 16:56 | XMS REPORT ---
Author Author Olga Saini Doctor Organization [facility] Address Unknown Phone Unavailable Care Team Providers Care Oceanography Professor Name Role Phone Migration, Doctor Unavailable Unavailable PROBLEMS Type Condition ICD9-CM Code [id number] Code Onset Dates Condition S tatus SNOMED Code Problem Seasonal allergic rhinitis due to pollen J30.1 Active [id number] ALLERGIES No Information ENCOUNTERS Encounter Location Date Diagnosis [facility] [address] [id number] [address] [place] [address] Sep, Seasonal allergic rhinitis d ue to pollen J30.1 [facility] [address] [facility] [id number] [address] [place] [address] Jun, Cellulitis, unspecified cell ulitis site L03.90 ; Cough R05 ; Acute midline low back pain without sciatica M54.5 and Bilateral lower extremity edema R60.0 [facility] [address] [address] Nov, [facility] [address] [address] Nov, [facility] [address] [address] Oct, [facility] [address] [address] Oct, [facility] [address] [address] Oct, [facility] [address] [address] Oct, [facility] [address] [address] Sep, [facility] [address] [address] Sep, 2014 [facility] [address] [id number] [place] [address] Sep, 2014 [facility] [address] [id number] [place] [address] Sep, 2014 [facility] [address] [id number] [place] [address] Sep, 2014 [facility] [address] [id number] [place] [address] Sep, 2014 [facility] [address] [id number] [place] [address] Sep, [facility] [address] [id number] [place] [address] Sep, 2014 [facility] [address] [id number] [place] [address] Sep, [facility] [address] [id number] [place] [address] Aug, [facility] [address] [id number] [place] [address] Aug, [facility] [address] [id number] [place] [address] Apr, [facility] [address] [id number] [place] [address] Apr, [facility] [address] [id number] [place] [address] Feb, [facility] [address] [id number] [place] [address] Feb, [facility] [address] [id number] [place] [address] Nov, [facility] [address] [id number] [place] [address] Nov, [facility] [address] [id number] [place] [address] Oct, [facility] [address] [id number] [place] [address] Oct, [facility] [address] [id number] [place] [address] May, [facility] [address] [id number] [place] [address] May, [facility] [address] [id number] [place] [address] Mar, [facility] [address] [id number] [place] [address] Mar, [facility] [address] [id number] [place] [address] Mar, [facility] [address] [id number] [place] [address] Feb, [facility] [address] [id number] [place] [address] Feb, [facility] [address] [id number] [place] [address] Nov, [facility] [address] [id number] [place] [address] Aug, [facility] [address] [id number] [place] [address] Apr, [facility] [address] [id number] [place] [address] Jan, [facility] [address] [id number] [place] [address] Jan, [facility] [address] [id number] [place] [address] Jan, [facility] [address] [id number] [place] [address] Oct, [facility] [address] [id number] [place] [address] Jul, [facility] [address] [id number] [place] [address] Jul, [facility] [address] [id number] [place] [address] Jul, [facility] [address] [id number] [place] [address] Jul, [facility] [address] [id number] [place] [address] Jul, [facility] [id number] [place] [address] Jun, [facility] [address] [id number] [place] [address] Jun, [facility] [address] [id number] [place] [address] December, [facility] [address] [id number] [place] [address] Nov, [facility] [address] [id number] [place] [address] May, IMMUNIZATIONS No Known Immunizations SOCIAL HISTORY Never Assessed REASON FOR VISIT PLAN OF CARE VITAL SIGNS MEDICATIONS Unknown Medications RESULTS No Results PROCEDURES No Known procedures INSTRUCTIONS MEDICATIONS ADMINISTERED No Known Medications
--- OUTSIDE RECORDS SUMMARY | 2020-02-15 16:56 | XMS REPORT ---
Author Author Olga LOCKHART [facility] Address [address] [place] [address] Care Team Providers Care Project Landscape Architect Name Role Phone RICHY ARCENIO Unavailable PROBLEMS Type Condition ICD9-CM Code DAO13-NB Code Onset Dates Condition S tatus SNOMED Code Problem Seasonal allergic rhinitis due to pollen J30.1 Active [id number] ALLERGIES No Information ENCOUNTERS Encounter Location Date Diagnosis [facility] [address] [id number] [address] [place] [address] Sep, Seasonal allergic rhinitis d ue to pollen J30.1 [facility] [address] [id number] [address] [place] [address] Jun, Cellulitis, unspecified cell ulitis site L03.90 ; Cough R05 ; Acute midline low back pain without sciatica M54.5 and Bilateral lower extremity edema R60.0 [facility] [address] [facility] [id number] [address] [place] [address] Nov, [facility] [address] [facility] [id number] [address] [place] [address] Nov, [facility] [address] [facility] [id number] [address] [place] [address] Oct, [facility] [address] [facility] [id number] [address] [place] [address] Oct, [facility] [address] [id number] [address] [place] [address] Oct, [facility] [address] [facility] [id number] [address] [place] [address] Oct, [facility] [address] [id number] [address] [place] [address] [place] [address] Sep, 2014 [facility] [address] [id number] [address] [place] [address], [place] [address] Sep, 2014 [facility] [address] [id number] [address] [place] [address], [place] [address] Sep, 2014 [facility] [address] [id number] [address] [place] [address], [place] [address] Sep, 2014 [facility] [address] [id number] [address] [place] [address], [place] [address] Sep, 2014 [facility] [address] [id number] [address] [place] [address], [place] [address] Sep, 2014 [facility] [address] [id number] [address] [place] [address], [place] [address] Sep, 2014 [facility] [address] [id number] [address] [place] [address], [place] [address] Sep, 2014 [facility] [address] [id number] [address] [place] [address], [place] [address] Sep, [facility] [address] [id number] [address] [place] [address], [place] [address] Aug, [facility] [address] [id number] [address] [place] [address], [place] [address] Aug, [facility] [address] [id number] [address] [place] [address], [place] [address] Apr, [facility] [address] [id number] [address] [place] [address], [place] [address] Apr, [facility] [address] [id number] [address] [place] [address], [place] [address] Feb, [facility] [address] [id number] [address] [place] [address], [place] [address] Feb, [facility] [address] [id number] [address] [place] [address], [place] [address] Nov, [facility] [address] [id number] [address] [place] [address], [place] [address] Nov, [facility] [address] [id number] [address] [place] [address], [place] [address] Oct, [facility] [address] [id number] [address] [place] [address], [place] [address] Oct, [facility] [address] [id number] [address] [place] [address], [place] [address] May, [facility] [address] [id number] [address] [place] [address], [place] [address] May, [facility] [address] [id number] [address] [place] [address], [place] [address] Mar, [facility] [address] [id number] [address] [place] [address], [place] [address] Mar, [facility] [address] [id number] [address] [place] [address], [place] [address] Mar, [facility] [address] [id number] [address] [place] [address], [place] [address] Feb, [facility] [address] [id number] [address] [place] [address], [place] [address] Feb, [facility] [address] [id number] [address] [place] [address], [place] [address] Nov, [facility] [address] [id number] [address] [place] [address], [place] [address] Aug, [facility] [address] [id number] [address] [place] [address], [place] [address] Apr, [facility] [address] [id number] [address] [place] [address], [place] [address] Jan, [facility] [address] [id number] [address] [place] [address], [place] [address] Jan, [facility] [address] [id number] [address] [place] [address] Jan, [facility] [address] [id number] [address] [place] [address] Oct, [facility] [address] [id number] [address] [place] [address] Jul, [facility] [address] [id number] [address] [place] [address] Jul, [facility] [address] [id number] [address] [place] [address] Jul, [facility] [address] [id number] [address] [place] [address] Jul, [facility] [address] [id number] [address] [place] [address] Jul, [facility] [address] [id number] [address] [place] [address] Jun, [facility] [address] [id number] [address] [place] [address] Jun, [facility] [address] [id number] [address] [place] [address] December, [facility] [address] [id number] [address] [place] [address] Nov, [facility] [address] [id number] [address] [place] [address] May, IMMUNIZATIONS No Known Immunizations SOCIAL HISTORY Never Assessed REASON FOR VISIT PLAN OF CARE VITAL SIGNS MEDICATIONS Unknown Medications RESULTS No Results PROCEDURES No Known procedures INSTRUCTIONS MEDICATIONS ADMINISTERED No Known Medications
--- OUTSIDE RECORDS SUMMARY | 2020-02-15 16:56 | XMS REPORT ---
Author Author Olga Sanabria Organization [facility] Address [address] [place] [address] Care Team Providers Care Stenciling Machine Tender Name Role Phone ITALIA Sanabria Unavailable PROBLEMS Type Condition ICD9-CM Code RAE16-QI Code Onset Dates Condition S tatus SNOMED Code Problem Seasonal allergic rhinitis due to pollen J30.1 Active [id number] ALLERGIES No Information ENCOUNTERS Encounter Location Date Diagnosis [facility] [address] [id number] [address] [place] [address] Sep, Seasonal allergic rhinitis d ue to pollen J30.1 [facility] [address] [id number] [address] [place] [address] Jun, Cellulitis, unspecified cell ulitis site L03.90 ; Cough R05 ; Acute midline low back pain without sciatica M54.5 and Bilateral lower extremity edema R60.0 [facility] [address] [id number] [address] [place] [address] Nov, [facility] [address] [facility] [id number] [address] [place] [address] Nov, [facility] [address] [id number] [address] [place] [address] Oct, [facility] [address] [facility] [id number] [address] [place] [address] Oct, [facility] [address] [id number] [address] [place] [address] Oct, [facility] [address] [id number] [address] [place] [address] Oct, [facility] [address] [id number] [address] [place] [address], [place] [address] Sep, 2014 [facility] [address] [id number] [address] [place] [address], [place] [address] Sep, 2014 [facility] [address] [id number] [address] [place] [address], [place] [address] Sep, 2014 [facility] [address] [id number] [address] [place] [address], [place] [address] Sep, 2014 [facility] [address] [id number] [address] [place] [address], [place] [address] Sep, 2014 [facility] [address] [id number] [address] [place] [address], [place] [address] Sep, 2014 [facility] [address] [id number] [address] [place] [address], [place] [address] Sep, 2014 [facility] [address] [id number] [address] [place] [address], [place] [address] Sep, 2014 [facility] [address] [id number] [address] [place] [address], [place] [address] Sep, [facility] [address] [id number] [address] [place] [address], [place] [address] Aug, [facility] [address] [id number] [address] [place] [address], [place] [address] Aug, [facility] [address] [id number] [address] [place] [address], [place] [address] Apr, [facility] [address] [id number] [address] [place] [address], [place] [address] Apr, [facility] [address] [id number] [address] [place] [address], [place] [address] Feb, [facility] [address] [id number] [address] [place] [address], [place] [address] Feb, [facility] [address] [id number] [address] [place] [address], [place] [address] Nov, [facility] [address] [id number] [address] [place] [address], [place] [address] Nov, [facility] [address] [id number] [address] [place] [address], [place] [address] Oct, [facility] [address] [id number] [address] [place] [address], [place] [address] Oct, [facility] [address] [id number] [address] [place] [address], [place] [address] May, [facility] [address] [id number] [address] [place] [address], [place] [address] May, [facility] [address] [id number] [address] [place] [address], [place] [address] Mar, [facility] [address] [id number] [address] [place] [address], [place] [address] Mar, [facility] [address] [id number] [address] [place] [address], [place] [address] Mar, [facility] [address] [id number] [address] [place] [address], [place] [address] Feb, [facility] [address] [id number] [address] [place] [address], [place] [address] Feb, [facility] [address] [id number] [address] [place] [address], [place] [address] Nov, [facility] [address] [id number] [address] [place] [address], [place] [address] Aug, [facility] [address] [id number] [address] [place] [address], [place] [address] Apr, [facility] [address] [id number] [address] [place] [address], [place] [address] Jan, [facility] [address] [id number] [address] [place] [address], [place] [address] Jan, [facility] [address] [id number] [address] [place] [address] Jan, [facility] [address] [id number] [address] [place] [address] Oct, [facility] [address] [id number] [address] [place] [address] Jul, [facility] [address] [id number] [address] [place] [address] Jul, [facility] [address] [id number] [address] [place] [address] Jul, [facility] [address] [id number] [address] [place] [address] Jul, [facility] [address] [id number] [address] [place] [address] Jul, [facility] [address] [id number] [address] [place] [address] Jun, [facility] [address] [id number] [address] [place] [address] Jun, [facility] [address] [id number] [address] [place] [address] December, [facility] [address] [id number] [address] [place] [address] Nov, [facility] [address] [id number] [address] [place] [address] May, IMMUNIZATIONS No Known Immunizations SOCIAL HISTORY Never Assessed REASON FOR VISIT PLAN OF CARE VITAL SIGNS MEDICATIONS Unknown Medications RESULTS No Results PROCEDURES No Known procedures INSTRUCTIONS MEDICATIONS ADMINISTERED No Known Medications
--- OUTSIDE RECORDS SUMMARY | 2020-02-15 16:56 | XMS REPORT ---
Author Author Olga Sanabria Organization [facility] Address [address] [place] [address] Care Team Providers Care Manager Travel Name Role Phone ITALIA Sanabria Unavailable PROBLEMS Type Condition ICD9-CM Code [id number] Code Onset Dates Condition S tatus SNOMED Code Problem Seasonal allergic rhinitis due to pollen J30.1 Active [id number] ALLERGIES No Information ENCOUNTERS Encounter Location Date Diagnosis [facility] [address] [id number] [address] [place] [phone] Sep, Seasonal allergic rhinitis d ue to pollen J30.1 [facility] [address] [id number] [address] [place] [address] Jun, Cellulitis, unspecified cell ulitis site L03.90 ; Cough R05 ; Acute midline low back pain without sciatica M54.5 and Bilateral lower extremity edema R60.0 [facility] [address] [id number] [address] [place] [address] Nov, [facility] [address] [facility] [id number] [address] [place] [phone] Nov, [facility] [address] [id number] [address] [place] [phone] Oct, [facility] [address] [facility] [id number] [address] [place] [phone] Oct, [facility] [address] [id number] [address] [place] [phone] Oct, [facility] [address] [id number] [address] [place] [phone] Oct, [facility] [address] [id number] [address] [place] [address], [place] [address] Sep, 2014 [facility] [place] [address] [id number] [address] [place] [address], [place] [address] Sep, 2014 [facility] [address] [id number] [address] [place] [address], [place] [address] Sep, 2014 [facility] [address] [id number] [address] [place] [address], [place] [address] Sep, 2014 [facility] [address] [id number] [address] [place] [address], [place] [address] Sep, 2014 [facility] [address] [id number] [address] [place] [address], [place] [address] Sep, 2014 [facility] [address] [id number] [address] [place] [address], [place] [address] Sep, 2014 [facility] [address] [id number] [address] [place] [address], [place] [address] Sep, 2014 [facility] [address] [id number] [address] [place] [address], [place] [address] Sep, [facility] [address] [id number] [address] [place] [address], [place] [address] Aug, [facility] [address] [id number] [address] [place] [address], [place] [address] Aug, [facility] [address] [id number] [address] [place] [address], [place] [address] Apr, [facility] [address] [id number] [address] [place] [address], [place] [address] Apr, [facility] [address] [id number] [address] [place] [address], [place] [address] Feb, [facility] [address] [id number] [address] [place] [address], [place] [address] Feb, [facility] [address] [id number] [address] [place] [address], [place] [address] Nov, [facility] [address] [id number] [address] [place] [address], [place] [address] Nov, [facility] [address] [id number] [address] [place] [address], [place] [address] Oct, [facility] [address] [id number] [address] [place] [address], [place] [address] Oct, [facility] [address] [id number] [address] [place] [address], [place] [address] May, [facility] [address] [id number] [address] [place] [address], [place] [address] May, [facility] [address] [id number] [address] [place] [address], [place] [address] Mar, [facility] [address] [id number] [address] [place] [address], [place] [address] Mar, [facility] [address] [id number] [address] [place] [address], [place] [address] Mar, [facility] [address] [id number] [address] [place] [address], [place] [address] Feb, [facility] [address] [id number] [address] [place] [address], [place] [address] Feb, [facility] [address] [id number] [address] [place] [address], [place] [address] Nov, [facility] [address] [id number] [address] [place] [address], [place] [address] Aug, [facility] [address] [id number] [address] [place] [address], [place] [address] Apr, [facility] [address] [id number] [address] [place] [address], [place] [address] Jan, [facility] [address] [id number] [address] [place] [address], [place] [address] Jan, [facility] [address] [id number] [address] [place] [address] Jan, [facility] [address] [id number] [address] [place] [address] Oct, [facility] [address] [id number] [address] [place] [address] Jul, [facility] [address] [id number] [address] [place] [address] Jul, [facility] [address] [id number] [address] [place] [address] Jul, [facility] [address] [id number] [address] [place] [address] Jul, [facility] [address] [id number] [address] [place] [address] Jul, [facility] [address] [id number] [address] [place] [address] Jun, [facility] [address] [id number] [address] [place] [address] Jun, [facility] [address] [id number] [address] [place] [address] December, [facility] [address] [id number] [address] [place] [address] Nov, [facility] [address] [id number] [address] [place] [address] May, IMMUNIZATIONS No Known Immunizations SOCIAL HISTORY Never Assessed REASON FOR VISIT PLAN OF CARE VITAL SIGNS MEDICATIONS Unknown Medications RESULTS No Results PROCEDURES No Known procedures INSTRUCTIONS MEDICATIONS ADMINISTERED No Known Medications
--- OUTSIDE RECORDS SUMMARY | 2020-02-15 16:57 | XMS REPORT | Continuity of Care Document ---
Author Organization Unknown Address Unknown Phone Unavailable Allergies Active Description Code Type Severity Reaction Onset Reported/Identified Relationship to Patient Clinical Status Yes Penicillins [id number] Drug Aller gy Unknown N/A 03/23/2007 Yes penicillin G sodium Drug Aller gy 11/20/2010 Yes penicillin G sodium Drug Aller gy N/A N/A 11/20/2010 Medications There is no data. Problems Date Dx Coded Attending Type Code Diagnosis Diagnosed By 06/09/2008 V25.49 NNEKA VEILLANCE OF OTHER CONTRACEPTIVE METHOD 06/09/2008 V25.49 NNEKA VEILLANCE OF OTHER CONTRACEPTIVE METHOD 06/09/2008 V25.49 NNEKA VEILLANCE OF OTHER CONTRACEPTIVE METHOD 06/09/2008 ARCENIO LOCKHART DO V25.49 SURVEILLANCE OF OTHER CONTRACEPTIVE METHOD 06/09/2008 ARCENIO LOCKHART DO V25.49 SURVEILLANCE OF OTHER CONTRACEPTIVE METHOD 06/09/2008 MARIAELENA WU APRN V25.49 SURVEILLANCE OF OTHER CONTRACEPTIVE METHOD 10/30/2010 V72.31 SENIOR QUALITY CONTROL INSPECTOR EXAM, ROUTINE 10/30/2010 V72.42 PRE GNANCY TEST POSITIVE RESULT 10/30/2010 V74.5 STD SCREEN 10/30/2010 V72.31 SENIOR QUALITY CONTROL INSPECTOR EXAM, ROUTINE 10/30/2010 V72.42 PRE GNANCY TEST POSITIVE RESULT 10/30/2010 V74.5 STD SCREEN 10/30/2010 V72.31 SENIOR QUALITY CONTROL INSPECTOR EXAM, ROUTINE 10/30/2010 V72.42 PRE GNANCY TEST POSITIVE RESULT 10/30/2010 V74.5 STD SCREEN 10/30/2010 ARCENIO LOCKHART DO V72.31 SENIOR QUALITY CONTROL INSPECTOR EXAM, ROUTINE 10/30/2010 ARCENIO LOCKHART DO V72.42 TEST POSITIVE RESULT 10/30/2010 ARCENIO LOCKHART DO V74.5 STD SCREEN 10/30/2010 ARCENIO LOCKHART DO V72.31 SENIOR QUALITY CONTROL INSPECTOR EXAM, ROUTINE 10/30/2010 ARCENIO LOCKHART DO V72.42 TEST POSITIVE RESULT 10/30/2010 ARCENIO LOCKHART DO V74.5 STD SCREEN 10/30/2010 MARIAELENA WU APRN V72.31 SENIOR QUALITY CONTROL INSPECTOR EXAM, ROUTINE 10/30/2010 MARIAELENA WU APRN V72.42 TEST POSITIVE RESULT 10/30/2010 MARIAELENA WU APRN V74.5 STD SCREEN 11/20/2010 654.20 PRE VIOUS 11/20/2010 782.1 RASH 11/20/2010 V22.1 PREG TREVOR, NORMAL OTHER 11/20/2010 654.20 PRE VIOUS 11/20/2010 782.1 RASH 11/20/2010 V22.1 PREG TREVOR, NORMAL OTHER 11/20/2010 654.20 PRE VIOUS 11/20/2010 782.1 RASH 11/20/2010 V22.1 PREG TREVOR, NORMAL OTHER 11/20/2010 ARCENIO LOCKHART DO 654.20 PREVIOUS 11/20/2010 LYDIA LOKCHART DOA K 782.1 RASH 11/20/2010 ARCENIO LOCKHART DO K V22.1 , NORMAL OTHER 11/20/2010 LYDIA LOCKHART DOA K 654.20 PREVIOUS 11/20/2010 LYDIA LOCKHART DOA K 782.1 RASH 11/20/2010 LYDIA LOCKHART DOA K V22.1 , NORMAL OTHER 11/20/2010 MARIAELENA WU APRN 654.20 PREVIOUS 11/20/2010 MARIAELENA WU APRN 782.1 RASH 11/20/2010 MARIAELENA UW APRN V22.1 , NORMAL OTHER 12/18/2010 640.00 ABO RTION THREATENED 12/18/2010 640.00 ABO RTION THREATENED 12/18/2010 640.00 ABO RTION THREATENED 12/18/2010 ARCENIO LOCKHART DO K 640.00 THREATENED 12/18/2010 ARCENIO LOCKHART DO K 640.00 THREATENED 12/18/2010 MARIAELENA WU APRN 640.00 THREATENED 12/22/2010 Ot 634.91 SPO N ABORT UNCOMPL-INC 06/20/2011 727.42 HALEY GLION OF TENDON SHEATH 06/20/2011 V25.9 CONT RACEPTION MANAGEMENT 06/20/2011 727.42 HALEY GLION OF TENDON SHEATH 06/20/2011 V25.9 CONT RACEPTION MANAGEMENT 06/20/2011 727.42 HALEY GLION OF TENDON SHEATH 06/20/2011 V25.9 CONT RACEPTION MANAGEMENT 06/20/2011 ARCENIO LOCKHART DO 727.42 GANGLION OF TENDON SHEATH 06/20/2011 ARCENIO LOCKHART DO V25.9 CONTRACEPTION MANAGEMENT 06/20/2011 ARCENIO LOCKHART DO 727.42 GANGLION OF TENDON SHEATH 06/20/2011 ARCENIO LOCKHART DO V25.9 CONTRACEPTION MANAGEMENT 06/20/2011 MARIAELENA WU APRN 727.42 GANGLION OF TENDON SHEATH 06/20/2011 MARIAEELNA WU APRN V25.9 CONTRACEPTION MANAGEMENT 07/18/2011 354.0 CARP AL TUNNEL SYNDROME 07/18/2011 354.0 CARP AL TUNNEL SYNDROME 07/18/2011 354.0 CARP AL TUNNEL SYNDROME 07/18/2011 ARCENIO LOCKHART DO 354.0 CARPAL TUNNEL SYNDROME 07/18/2011 ARCENIO LOCKHART DO 354.0 CARPAL TUNNEL SYNDROME 07/18/2011 MARIAELENA WU APRN 354.0 CARPAL TUNNEL SYNDROME 01/28/2012 719.41 OLIMPIA ULDER JOINT PAIN 01/28/2012 V76.2 CERV ICAL CANCER SCREENING (PAP SMEAR) 01/28/2012 719.41 OLIMPIA ULDER JOINT PAIN 01/28/2012 V76.2 CERV ICAL CANCER SCREENING (PAP SMEAR) 01/28/2012 719.41 OLIMPIA ULDER JOINT PAIN 01/28/2012 V76.2 CERV ICAL CANCER SCREENING (PAP SMEAR) 01/28/2012 ARCENIO LOCKHART DO 719.41 SHOULDER JOINT PAIN 01/28/2012 ARCENIO LOCKHART DO V76.2 CERVICAL CANCER SCREENING (PAP SMEAR) 01/28/2012 ARCENIO LOCKHART DO 719.41 SHOULDER JOINT PAIN 01/28/2012 ARCENIO LOCKHART DO V76.2 CERVICAL CANCER SCREENING (PAP SMEAR) 01/28/2012 MARIAELENA WU APRN 719.41 SHOULDER JOINT PAIN 01/28/2012 MARIAELENA WU APRN V76.2 CERVICAL CANCER SCREENING (PAP SMEAR) 05/01/2012 V72.41 PRE GNANCY TEST NEGATIVE RESULT 05/01/2012 V72.41 PRE GNANCY TEST NEGATIVE RESULT 05/01/2012 V72.41 PRE GNANCY TEST NEGATIVE RESULT 05/01/2012 LYDIA LOCKHART DOA K V72.41 TEST NEGATIVE RESULT 05/01/2012 RICHY HUNT ARCENIO K V72.41 TEST NEGATIVE RESULT 05/01/2012 MAX WU APRNINA R V72.41 TEST NEGATIVE RESULT 03/10/2013 305.1 TOBA EDDY CURRENT INSPECTOR ABUSE 03/10/2013 V76.10 NILAM AST CANCER SCREENING 03/10/2013 LOCKHART DO ARCENIO K 305.1 TOBACCO ABUSE 03/10/2013 RICHY HUNT ARCENIO K V76.10 BREAST CANCER SCREENING 03/10/2013 RICHY HUNT, ARCENIO K 305.1 TOBACCO ABUSE 03/10/2013 RICHY HUNT ARCENIO K V76.10 BREAST CANCER SCREENING 03/10/2013 MARIAELENA WU APRN R 305.1 TOBACCO ABUSE 03/10/2013 MARIAELENA WU APRN R V76.10 BREAST CANCER SCREENING 01/06/2014 MAXX BABCOCK APRN Ot 305 .1 TOBACCO USE DISORDER 01/06/2014 MAXX BABCOCK APRN Ot 465 .9 ACUTE URI NOS 01/06/2014 MAXX BABCOCK APRN Ot 786 .2 COUGH 09/06/2014 MARIAELENA WU APRN R 388.70 OTALGIA UNSPECIFIED 08/11/2016 Ot 647.94 08/11/2016 Ot 998.59 10/09/2016 Ot 647.94 10/09/2016 Ot 998.59 01/09/2017 Ot 647.94 01/09/2017 Ot 998.59 02/14/2017 SAM SINGH MD Ot H57 .8 OTHER SPECIFIED DISORDERS OF EYE AND ADN 02/14/2017 SAM SINGH MD Ot L23 .7 ALLERGIC CONTACT DERMATITIS DUE TO PLANT 02/17/2017 SAM SINGH MD Ot H57 .8 OTHER SPECIFIED DISORDERS OF EYE AND ADN 02/17/2017 SAM SINGH MD Ot L23 .7 ALLERGIC CONTACT DERMATITIS DUE TO PLANT 02/16/2018 MAXX BABCOCK APRN Ot K04 .7 PERIAPICAL ABSCESS WITHOUT SINUS 02/16/2018 MAXX BABCOCK APRN Ot K08.89 OTHER SPECIFIED DISORDERS OF TEETH AND S 02/16/2018 MAXX BABCOCK APRN Ot Z79.52 LONG-TERM (CURRENT) USE OF SYSTEMIC STER 02/16/2018 MAXX BABCOCK APRN Ot Z87.19 PERSONAL HISTORY OF OTHER DISEASES OF 02/16/2018 MAXX BABCOCK GINETTE Ot Z88 .0 ALLERGY STATUS TO PENICILLIN 03/02/2018 YA ALVA, MOLLY Mcrae Ot F17.210 NICOTINE DEPENDENCE, CIGARETTES, UNCOMPL 03/02/2018 MOLLY PANDYA MD, Ot L25.5 UNSPECIFIED CONTACT DERMATITIS DUE TO PL 03/02/2018 MOLLY PANDYA MD, Ot R21 RASH AND OTHER NONSPECIFIC SKIN ERUPTION 03/02/2018 MOLLY PANDYA MD, Ot Z79.52 AGENT (CURRENT) USE OF SYSTEMIC STER 03/02/2018 MOLLY PANDYA MD, Ot Z88.0 ALLERGY STATUS TO PENICILLIN Procedures Code [place] [address] URIN E TEST (IN- HOUSE) 08/26/2012 71930 THER APUTIC INJ SQ/IM 08/26/2012 J1055 DEPO -PROVERA INJ 150 MG 08/26/2012 27694 THER APUTIC INJ SQ/IM 11/30/2012 J1050 DEPO PROVERA 11/30/2012 08176 URIN E TEST (IN- HOUSE) 11/30/2012 66110 URIN E TEST (IN- HOUSE) 06/01/2013 30195 THER APUTIC INJ SQ/IM 06/01/2013 J1050 DEPO PROVERA 06/01/2013 J1050 DEPO PROVERA 11/16/2013 87895 PREG TREVOR TEST, URINE (IN- HOUSE) 11/16/2013 49046 THER APUTIC INJ SQ/IM 11/16/2013 Results Test Result Range Gram stain microscopy - 02/13/18 15:34 GRAM STAIN RESULT FEW WBC'S, NO BACTERIA OBSERVED NRG Bacteria identification in wound by cult ure - 02/13/18 15:34 Bacteria identification in wound by culture 150045 008 NRG FREE TEXT EXTERNAL BETA LACTAMASE NEGATIVE NRG QUANTITY OF GROWTH Scant Growth NRG Encounters ACCT No. Visit Date/Time Discharge Status Pt. Type Provider Facility Loc./Unit Complaint [id number] 2019 13:00:00 2019 23:59:5 9 CLS Outpatient NIA LANIER [facility] [id number] 09/06/2014 17:58:00 09/06/2014 23:59: 59 CLS Outpatient MARIAELENA WU APRN Chris [id number] 11/16/2013 15:12:00 11/16/2013 23:59: 59 CLS Outpatient ARCENIO LOCKHART DO Nubia [id number] 06/01/2013 13:34:00 06/01/2013 23:59: 59 CLS Outpatient ARCENIO LOCKHART DO Nubia [id number] 08/26/2012 14:01:00 08/26/2012 23:59: 59 CLS Outpatient [id number] 03/10/2013 09:21:00 Document Registration [id number] 11/30/2012 18:13:00 Document Registration [id number] 02/26/2018 09:11:00 018 10:55:00 DIS Outpatient YA ALVA, MOLLY Mcrae [facility] ER POISON NOVA [id number] 02/13/2018 14:48:00 018 15:56:00 DIS Outpatient MAXX BABCOCK APRN [facility] ER DENTAL INFECTION [id number] 02/14/2017 14:25:00 017 15:17:00 DIS Emergency FRANCISCO ALVA, SAM Delacruz [facility] ER ALLERGIC REACTION/EYES SWOLLEN [id number] 01/06/2014 13:15:00 014 14:26:00 DIS Emergency MAXX BABCOCK APRN [facility] ER COUGH CHEST/BACK PAIN S OA [id number] 12/21/2010 21:45:00 Document Registration [id number] 03/28/2007 00:30:00 Document Registration
== END 2020-02-15 13:17 | disposition home or self-care (01) ==
LOC: EDUNIT# 13:02 → ER 13:03
DX: Z00.8 Encounter for other general examination (principal); Z88.0 Allergy status to penicillin; Z79.52 Long term (current) use of systemic steroids
CPT/HCPCS: 99281

== ENCOUNTER 2021-05-18 19:48 | Emergency (ER) | payer SELFPAY ==
[~2021-05-18] VITALS: Ht 157.4 cm; Wt 60.0 kg
--- NOTE | 2021-05-18 20:12 | ED Lower Extremity ---
General Chief Complaint: Lower Extremity Stated Complaint: BI LAT LEG SWOLLEN, HIGH HR Source: patient Exam Limitations: no limitations History of Present Illness Date Seen by Provider: May 18, 2021 Time Seen by Provider: 19:50 Initial Comments Patient to the ER by private conveyance from [facility] clinic with chief complaint she had a rash of her bilateral lower extremities. She says been going on for about 4 days. She states she felt she was having some anxiety attacks related to methamphetamine she did use in the past several days and so she took Tylenol codeine because she had it. She says in the past Tylenol codeine has caused her to have a rash similar to this. She also recently moved on some homeless people to live with her to help make ends meet and does not know if she caught something from them. She only has little itching rash on her back and her bilateral lower legs. She says she is always had big swollen legs or feels like they are bigger than usual. No history of blood clots. Said her mom had a cancer and had blood clots associated with that. No other familial history. S he does not routinely take any medicines no follow-up with her primary care doctor however she got [facility] today and they told her they did not know what it was about and drove her here. She has had an elevated heart rate for the past couple days which she associates with her recent methamphetamine use. She says she does attend Narcotics Anonymous but she has not been at tending much recently because of transportation and having to work 6 days a week. She is not having any fever chills nausea vomiting shortness of air cough chest pain. She states in the past she has been clean as long as 2 years. Allergies and Home Medications Allergies Coded Allergies: Penicillins (Verified Allergy, Unknown, 03/23/07) Patient Home Medication List Home Medication List Reviewed: Yes Cephalexin (Keflex) 500 Mg Capsule, 500 MG PO TID Prescribed by: MAXX BABCOCK on 02/13/181513 Hydrocodone/Acetaminophen (Hydrocodone/Acetaminophen 5 MG/325 MG TAB) 1 Each Tablet, 1 EACH PO Q4H PRN for PAIN-MODERATE Prescribed by: MAXX BABCOCK on 02/13/181513 Metronidazole (Flagyl) 500 Mg Tablet, 500 MG PO TID Prescribed by: MAXX BABCOCK on 02/13/181513 Prednisone (Prednisone) 20 Mg Tab, 40 MG PO Q a.m. Prescribed by: SAM SINGH on 02/14/17 1502 Prednisone (Prednisone) 10 Mg Tab.ds.pk, 10 MG PO UD Prescribed by: MOLLY YAP on 02/26/18 1044 Review of Systems Constitutional: No chills, No diaphoresis EENTM: No hearing loss, No ear pain Respiratory: No cough, No short of breath Cardiovascular: No chest pain, No palpitations Gastrointestinal: No abdominal pain, No constipation, No diarrhea Genitourinary: No discharge, No dysuria Control/STD Prophylaxis: None Musculoskeletal: see HPI; No back pain, No joint pain Skin: see HPI, change in color, pruritus (Mild), rash All Other Systems Reviewed Negative Unless Noted: Yes Past Ciocnac-Gczcct-Sndzyz Hx Patient Social History Tobacco Use?: Yes Smoking Status: Current Everyday Smoker (Half pack per day) Use of E-Cig and/or Vaping dev: No Substance use?: Yes Substance type: Methamphetamine Substance frequency: Couple times a week Alcohol Use?: Yes Alcohol type: Hard Liquor, Wine Alcohol Frequency: Daily Immunizations Up To Date Tetanus Booster (TDap): Unknown PED Vaccines UTD: Yes Past Medical History Surgeries: Yes (HERNIA REPAIR) Respiratory: No Cardiac: No Neurological: No Reproductive Disorders: No Genitourinary: No Gastrointestinal: No Musculoskeletal: No Endocrine: No Cancer: No Psychosocial: No Integumentary: No Blood Disorders: No Physical Exam Vital Signs Vital Signs - First Documented 05/18/21 19:55 Temp 36.6 Pulse 119 Resp 24 B/P (MAP) 142/99 (113) Pulse Ox 98 O2 Delivery Room Air Capillary Refill : Height, Weight, BMI Height: 5'3.00" Weight: 130lbs. 0oz. 58.008091uz; 24.00 BMI Method:Stated General Appearance: WD/WN, no apparent distress HEENT: PERRL/EOMI, pharynx normal Neck: full range of motion, normal inspection Cardiovascular: normal peripheral pulses, regular rate, rhythm, no edema Respiratory: lungs clear, normal breath sounds, no respiratory distress Gastrointestinal: non tender, soft Legs: bilateral leg non-tender, bilateral leg normal range of motion, bilateral leg no evidence of injury, bilateral leg swelling (Uniformly large calves but only trace ankle edema that is symmetric. There is a macular, blanchable erythema and small patches and confluences no greater than 1 cm without any burrows or excoriations distributed across bilateral lower extremities. A few feliciano of the top of her back across her shoulder blades that are similar with a few scant excoriation feliciano.), bilateral leg other (Homans' sign negative, calves nontender to palpation) Neurologic/Tendon: normal sensation, normal motor functions, normal tendon functions Neurologic/Psychiatric: no motor/sensory deficits, alert, normal mood/affect, oriented x 3 Skin: warm/dry, rash (Erythematous rash with a little bit of excoriations and itching on her between her shoulder blades.), other (Skin is intact no evidence of cellulitis, phlebitis.) Progress/Results/Core Measures Results/Orders Lab Results Laboratory Tests Test 05/18/21 20:31 Range/Units White Blood Count 7.2 4.3-11.0 10^3/uL Red Blood Count 4.64 3.80-5.11 10^6/uL Hemoglobin 13.1 11.5-16.0 g/dL Hematocrit 38 35-52 % Mean Corpuscular Volume 83 80-99 fL Mean Corpuscular Hemoglobin 28 25-34 pg Mean Corpuscular Hemoglobin Concent 34 32-36 g/dL Red Cell Distribution Width 13.2 10.0-14.5 % Platelet Count 167 130-400 10^3/uL Mean Platelet Volume 10.9 9.0-12.2 fL Immature Granulocyte % (Auto) 0 % Neutrophils (%) (Auto) 51 42-75 % Lymphocytes (%) (Auto) 37 12-44 % Monocytes (%) (Auto) 11 0-12 % Eosinophils (%) (Auto) 1 0-10 % Basophils (%) (Auto) 0 0-10 % Neutrophils # (Auto) 3.7 1.8-7.8 10^3/uL Lymphocytes # (Auto) 2.6 1.0-4.0 10^3/uL Monocytes # (Auto) 0.8 0.0-1.0 10^3/uL Eosinophils # (Auto) 0.1 0.0-0.3 10^3/uL Basophils # (Auto) 0.0 0.0-0.1 10^3/uL Immature Granulocyte # (Auto) 0.0 0.0-0.1 10^3/uL D-Dimer 0.37 0.00-0.49 UG/ML Sodium Level 138 135-145 MMOL/L Potassium Level 4.0 3.6-5.0 MMOL/L Chloride Level 107 98-107 MMOL/L Carbon Dioxide Level 19 L 21-32 MMOL/L Anion Gap 12 5-14 MMOL/L Blood Urea Nitrogen 22 H 7-18 MG/DL Creatinine 0.64 0.60-1.30 MG/DL Estimat Glomerular Filtration Rate 105 BUN/Creatinine Ratio 34 Glucose Level 89 70-105 MG/DL Calcium Level 9.0 8.5-10.1 MG/DL Corrected Calcium 9.4 8.5-10.1 MG/DL Total Bilirubin 0.4 0.1-1.0 MG/DL Aspartate Amino Transf (AST/SGOT) 21 5-34 U/L Alanine Aminotransferase (ALT/SGPT) 21 0-55 U/L Alkaline Phosphatase 82 40-136 U/L C-Reactive Protein High Sensitivity 0.09 0.00-0.50 MG/DL Total Protein 6.5 6.4-8.2 GM/DL Albumin 3.5 3.2-4.5 GM/DL My Orders Orders - NANCY DAWSON Fibrin Degradation Products (05/18/21 20:05) Cbc With Automated Diff (05/18/21 20:05) Comprehensive Metabolic Panel (05/18/21 20:05) Hs C Reactive Protein (05/18/21 20:05) Loratadine Tablet (Claritin Tablet) (05/18/21 20:15) Diphenhydramine Tablet (Benadryl Tablet) (05/18/21 20:15) Medications Given in ED Current Medications Medications Dose Ordered Sig/Alvarez Route Start Time Stop Time Status Last Admin Dose Admin Diphenhydramine HCl 25 mg ONCE ONCE PO 05/18/21 20:15 05/18/21 20:16 DC 05/18/21 20:11 25 MG Loratadine 10 mg ONCE ONCE PO 05/18/21 20:15 05/18/21 20:16 DC 05/18/21 20:11 10 MG Vital Signs/I&O 05/18/21 19:55 Temp 36.6 Pulse 119 Resp 24 B/P (MAP) 142/99 (113) Pulse Ox 98 O2 Delivery Room Air Progress Progress Note : Time: 20:08 Progress Note Her tachycardia could be explained by her methamphetamine use. It looks more like an allergic reaction as it is erythema but it is blanchable macular no painful knots or Homans' sign. We will give her some basic labs and if those are okay we will treat her with some Claritin and Benadryl for allergic reaction to either the codeine or adulterant of her methamphetamines or some other allergy. It does not appear to be scabies or body lice. Return instructions were given. We did discuss at length Narcotics Anonymous and working against transportation as well as improving her situation. She says she is contemplative about quitting methamphetamines and was encouraged to follow-up with [facility] as they can help her with this. If her D-dimer however fails to rule her out we can set her up for an ultrasound and give her a dose of Lovenox today. Departure Impression Primary Impression: Allergic rash present on examination Disposition: 01 HOME, SELF-CARE Condition: Stable Departure-Patient Inst. Decision time for Depature: 21:42 Referrals: [facility]/ANTIONE SHARMA,LOCAL PHYSICIAN (PCP) Primary Care Physician Patient Instructions: Allergic Reaction ED Add. Discharge Instructions: You appear to be having allergic reaction to something. Claritin 10 mg once or twice a day as necessary for rash and itching until it goes away. Benadryl 1 to 2 tablets every 6 hours as necessary for breakthrough itching. Benadryl will cause drowsiness. Drink plenty of fluids. Follow-up with NA. [facility] actually has some addiction treatment doctors available who are more than willing to help you with your addiction issues. Promptly return to the ER if you are having chest pain, shortness of air or other worrisome symptoms. Typically this will resolve on its own in a week or so. If it persist the need to follow-up with your primary care doctor to discuss further management. All discharge instructions reviewed with patient and/or family. Voiced understanding. Copy Copies To 1: ARCENIO LOCKHART TITUS J May 18, 2021 20:12
[2021-05-18] MEDS ORDERED: diphenhydrAMINE 25 MG TAB (BENADRYL) PO ONE (20:15)
[2021-05-18] MEDS ORDERED: LORATADINE (CLARITIN) 10 MG TAB PO ONE (20:15)
[2021-05-18 20:38] LABS: BASOPHILS % (AUTO) 0 % (0-10); EOSINOPHILS # (AUTO) 0.1 10^3/uL (0.0-0.3); EOSINOPHILS % (AUTO) 1 % (0-10); HEMATOCRIT 38 % (35-52); HEMOGLOBIN 13.1 g/dL (11.5-16.0); LYMPHOCYTES # (AUTO) 2.6 10^3/uL (1.0-4.0); LYMPHOCYTES % (AUTO) 37 % (12-44); MEAN CORPUSCULAR HEMOGLOBIN 28 pg (25-34); MEAN CORPUSCULAR HGB CONC 34 g/dL (32-36); MEAN CORPUSCULAR VOLUME 83 fL (80-99); MEAN PLATELET VOLUME 10.9 fL (9.0-12.2); MONOCYTES # (AUTO) 0.8 10^3/uL (0.0-1.0); MONOCYTES % (AUTO) 11 % (0-12); NEUTROPHILS # (AUTO) 3.7 10^3/uL (1.8-7.8); NEUTROPHILS % (AUTO) 51 % (42-75); PLATELET COUNT 167 10^3/uL (130-400); WHITE BLOOD COUNT 7.2 10^3/uL (4.3-11.0)
[2021-05-18 20:53] LABS: ALBUMIN 3.5 GM/DL (3.2-4.5)
[2021-05-18 20:56] LABS: TOTAL PROTEIN 6.5 GM/DL (6.4-8.2)
[2021-05-18 20:57] LABS: BILIRUBIN,TOTAL 0.4 MG/DL (0.1-1.0)
[2021-05-18 20:59] LABS: CREATININE SERUM 0.64 MG/DL (0.60-1.30)
[2021-05-18 21:51] VITALS: BP 120/74
== END 2021-05-18 21:48 | disposition home or self-care (01) ==
LOC: EDUNIT# 19:48 → ER 19:50
DX: R21 Rash and other nonspecific skin eruption (principal); F17.210 Nicotine dependence, cigarettes, uncomplicated; Z79.52 Long term (current) use of systemic steroids
CPT/HCPCS: 36415; 80053; 85025; 85379; 86141; 99283

== ENCOUNTER 2022-06-12 10:59 | Emergency (ER) | payer SELFPAY ==
[~2022-06-12] VITALS: Ht 157.4 cm; Wt 59.1 kg
--- NOTE | 2022-06-12 11:37 | ED Upper Extremity ---
General Chief Complaint: Upper Extremity Stated Complaint: LT ARM PAIN Nursing Triage Note: pt states she fell off her porch yesterday onto a stick and has had left upper arm pain and swelling since then (DIGNA YOUNG APRN) History of Present Illness Date Seen by Provider: Jun 12, 2022 Time Seen by Provider: 11:37 Initial Comments Patient reports that she fell off her porch yesterday onto a stick and has left upper arm pain and swelling since that time. Has not taken anything at home for her symptoms. Has normal range of motion of arm. Onset: yesterday Pain/Injury Location: left arm Method of Injury: direct blow, fell Modifying Factors: Improves With Movement, Improves With Pain Medication (DIGNA YOUNG APRN) Allergies and Home Medications Allergies Coded Allergies: Penicillins (Verified Allergy, Unknown, 03/23/07) Patient Home Medication List Home Medication List Reviewed: Yes (DIGNA YOUNG APRN) Cephalexin (Keflex) 500 Mg Capsule, 500 MG PO TID Prescribed by: MAXX BABCOCK on 02/13/18 1514 Hydrocodone/Acetaminophen (Hydrocodone/Acetaminophen 5 MG/325 MG TAB) 1 Each Tablet, 1 EACH PO Q4H PRN for PAIN-MODERATE Prescribed by: MAXX BABCOCK on 02/13/18 1514 Metronidazole (Flagyl) 500 Mg Tablet, 500 MG PO TID Prescribed by: MAXX BABCOCK on 02/13/18 1514 Prednisone (Prednisone) 20 Mg Tab, 40 MG PO Q a.m. Prescribed by: SAM SINGH on 02/14/17 1502 Prednisone (Prednisone) 10 Mg Tab.ds.pk, 10 MG PO UD Prescribed by: MOLLY YAP on 02/26/18 1044 Review of Systems Constitutional: No fever Respiratory: no symptoms reported Cardiovascular: no symptoms reported Musculoskeletal: joint pain (left upper arm), joint swelling (left upper arm) Skin: change in color (bruising to left upper arm) (DIGNA YOUNG APRN) All Other Systems Reviewed Negative Unless Noted: Yes (DIGNA YOUNG APRN) Past Hieempd-Mtkugz-Yveust Hx Patient Social History Tobacco Use?: Yes Tobacco type used: Cigarettes Smoking Status: Current Everyday Smoker Substance use?: Yes Substance frequency: Couple times a week Alcohol Use?: Yes Alcohol Frequency: Couple times a week Pt feels they are or have been: No (DIGNA YOUNG APRN) Immunizations Up To Date Tetanus Booster (TDap): Unknown PED Vaccines UTD: Yes Influenza Vaccine Up-to-Date: No; Not Current (DIGNA YOUNG APRN) Past Medical History Surgeries: Yes (HERNIA REPAIR) Respiratory: No Cardiac: No Neurological: No Reproductive Disorders: No Genitourinary: No Gastrointestinal: No Musculoskeletal: No Endocrine: No Cancer: No Psychosocial: No Integumentary: No Blood Disorders: No (DIGNA YOUNG APRN) Family Medical History Reviewed Nursing Family Hx (DIGNA YOUNG APRN) Physical Exam Vital Signs Vital Signs - First Documented 06/12/22 11:12 Temp 36.1 Pulse 117 Resp 22 B/P (MAP) 123/66 (85) Pulse Ox 98 O2 Delivery Room Air (MOLLY PANDYA MD) Vital Signs Capillary Refill : Less Than 3 Seconds (DIGNA YOUNG APRN) Height, Weight, BMI Height: 5'3.00" Weight: 130lbs. 0oz. 58.276437kp; 23.00 BMI Method:Stated General Appearance: WD/WN, no apparent distress Neck: non-tender, full range of motion, supple, normal inspection Back: normal inspection, no CVA tenderness, no vertebral tenderness Shoulder: ecchymosis (left upper arm), pain, soft tissue tenderness (left lateral arm), swelling (left lateral arm) Wrist: Yes normal inspection Hand: normal inspection Neurologic/Psychiatric: alert, normal mood/affect, oriented x 3 Skin: ecchymosis (left lateral arm) (DIGNA YOUNG APRN) Progress/Results/Core Measures Results/Orders Vital Signs/I&O 06/12/22 06/12/22 11:12 12:47 Temp 36.1 36.1 Pulse 117 117 Resp 22 22 B/P (MAP) 123/66 (85) 123/66 Pulse Ox 98 98 O2 Delivery Room Air Room Air (MOLLY PANDYA MD) Blood Pressure Mean: 85 Progress Progress Note : Progress Note Patient presents to the emergency department for left upper arm pain and bruising after a fall. Will XR arm and determine treatment from there. 1225: XR negative for fracture. Home instructions reviewed with patient. Reasons to return to the ER were discussed with patient. (DIGNA YOUNG APRN) Diagnostic Imaging Diagonstic Imaging: Xray Plain Films/CT/US/NM/MRI: other (arm) Comments NAME: PK [facility] REC#: [id number] PT STATUS: DEP ER : 1985 PHYSICIAN: DIGNA YOUNG APRN ADMIT DATE: 06/12/22/ER Signed Date of Exam:06/12/22 HUMERUS, LEFT, 2 VIEWS INDICATION: Fall, pain. FINDINGS: Two-view left humerus showed no fracture, dislocation, or acute articular irregularity. IMPRESSION: No acute appearing abnormality. Dictated by: Dictated on workstation # [id number] Dict: 06/12/22 1236 Trans: 06/12/22 1609 [id number] Interpreted by: SHAHID BUENROSTRO Electronically signed by: SHAHID BUENROSTRO 06/12/22 1609 (DIGNA YOUNG APRN) Departure Impression Primary Impression: Contusion, arm, upper Qualified Codes: S40.022A - Contusion of left upper arm, initial encounter Disposition: 01 HOME, SELF-CARE Condition: Stable Departure-Patient Inst. Decision time for Depature: 12:28 (DIGNA YOUNG APRN) Referrals: NO,LOCAL PHYSICIAN (PCP/Family) Primary Care Physician Patient Instructions: Contusion (DC) Add. Discharge Instructions: 1. Home and rest. 2. Push fluids. 3. Alternate Tylenol/Ibuprofen as needed for pain. 4. Follow up with PCP as needed. 5. Ice and elevate. 6. Return here if worse or concerns. All discharge instructions reviewed with patient and/or family. Voiced understanding. Work/School Note: Work Release Form Date Seen in the Emergency Department: Jun 12, 2022 Return to Work: Jun 13, 2022 Restrictions: No Restrictions ATTENDING PHYSICIAN NOTE: I was physically present as attending physician in the emergency department during the care of this patient, but I was not directly involved in the decision making or delivery of care for this patient. (MOLLY PANDYA MD) DIGNA YOUNG APRN Jun 12, 2022 11:37 MOLLY PANDYA MD Jun 12, 2022 19:50
--- NOTE | 2022-06-12 12:36 | Diagnostic Imaging Report ---
INDICATION: Fall, pain. FINDINGS: Two-view left humerus showed no fracture, dislocation, or acute articular irregularity. IMPRESSION: No acute appearing abnormality. Dictated by: Dictated on workstation # [id number]
[2022-06-12 12:47] VITALS: BP 123/66
== END 2022-06-12 12:48 | disposition home or self-care (01) ==
LOC: EDUNIT# 10:59 → ER 11:03
DX: S40.022A Contusion of left upper arm, initial encounter (principal); F17.210 Nicotine dependence, cigarettes, uncomplicated; Z28.311 Partially vaccinated for COVID-19; W18.30XA Fall on same level, unspecified, initial encounter; Y92.008 Other place in unspecified non-institutional (private) residence as the place of occurrence of the external cause
CPT/HCPCS: 73060